=== PATIENT | female | born 1965 | race Caucasian/White ===

== ENCOUNTER 2018-03-09 16:02 | Inpatient (IN) | payer BC, SELFPAY ==
[2018-03-09] VITALS (7 sets, daily range): BP systolic 101–139; BP diastolic 55–79; PULSE 70–86; RESP 16–19; TEMP 37.2; O2SAT 92–97
--- NOTE | 2018-03-09 16:09 | DI.RAD.S_ITS ---
PROCEDURE: XR LUMBAR SPINE 2-3V INDICATIONS: Fall midline back pain. TECHNIQUE: 3 views of the lumbar spine were acquired. COMPARISON: None. FINDINGS: Bones: There 5 lumbar type vertebral bodies. There is a superior endplate compression deformity of T12. There are bilateral L5 pars defects resulting in 4 mm of anterolisthesis of L5 on S1. Soft tissues: Overlying bowel gas pattern is normal. No suspicious soft tissue calcifications. IMPRESSION: #1. Superior endplate compression deformity of T12 vertebral body, which may be chronic at this level. Correlation with point tenderness suggested. #2. Bilateral L5 pars defects resulting in 4 mm of anterolisthesis of L5 on S1. Dictated by: Spencer Ruiz M.D. on 03/09/2018 at 16:47 Approved by: Spencer Ruiz M.D. on 03/09/2018 at 16:50
[2018-03-09] MEDS: HYDROMORPHONE 1 MG INJ IV ×2 (16:27→18:14)
--- NOTE | 2018-03-09 17:01 | DI.CT.S_ITS ---
PROCEDURE: CT LUMBAR SPINE WO CON INDICATIONS: severe lumbar pain s/p fall TECHNIQUE: Noncontrast 3 mm thick sections acquired from the T12 level to the sacrum. Sagittal and coronal reformats were constructed. For radiation dose reduction, the following was used: automated exposure control. COMPARISON: [facility], CR, XR LUMBAR SPINE 2-3V, 03/09/2018, 16:18. FINDINGS: Image quality: Excellent. Bones: There are acute superior endplate compression deformities of the T12 and L1 vertebral bodies. There is approximately 10% vertebral body height loss at each level. Slight retropulsion of the posterior fracture fragment of the T12 superior endplate compression fracture results in minimal spinal canal stenosis at that level. There are bilateral L5 pars defects resulting in 4 mm of anterolisthesis of L5 on S1, which appears chronic. Soft tissues: No retroperitoneal masses or hematomas. Visualized aorta is normal in caliber. Lobulated appearance of the uterus, which may represent the presence of uterine fibroids. IMPRESSION: #1. Acute T12 and L1 superior endplate compression fractures. Mild retropulsion of the T12 posterior fracture fragment results in mild spinal canal stenosis at that level. #2. Chronic-appearing bilateral L5 pars defects resulting in 4 mm of anterolisthesis of L5 on S1. Findings discussed with the ordering provider Dr. Long Auhmada at 6:45 PM on 03/09/[address] Ruiz. Dictated by: Spencer Ruiz M.D. on 03/09/2018 at 18:45 Approved by: Spencer Ruiz M.D. on 03/09/2018 at 18:55
--- NOTE | 2018-03-09 17:58 | PC.NURSE ---
patient lying on back now. Feeling some better. Says that the pain medicine really helped but now it is starting to come back .Call light in reach and will call when she feels she needs some
--- NOTE | 2018-03-09 20:21 | ED_ITS ---
HPI - Back Pain/Injury General Chief Complaint: Back Pain/Injury Stated Complaint: Low back pain, fell 3ft Time Seen by Provider: 03/09/18 16:09 Source: patient, family and EMS Mode of arrival: ambulatory Limitations: no limitations History of Present Illness HPI Narrative: 52-year-old otherwise healthy female presents to the emergency department [facility] for evaluation back pain after a fall from 3 ft. She was standing on a ledge fell backwards, landing directly on her back. She denies any head or neck pain. She denies any chest pain or shortness of breath. She has no abdominal pain. She denies use of blood thinners, alcohol or street drugs. She has no numbness, tingling or weakness. She denies any loss of control of or bladder. Her pain is quite intense particularly when she moves. She complains of a pain largely in the midline with some surrounding tissue involvement. She was given fentanyl 150 mcg prior to her arrival MD Complaint: back pain Onset (ago): hour(s) Duration: constant Location: lumbar spine Severity: severe Quality: sharp Radiation: none Relieving factors: medication Exacerbating factors: movement, sitting upright and walking Context: fall and trauma Associated symptoms: denies other symptoms Treatments prior to arrival: other medications Related Data Home Medications Medication Instructions Recorded Confirmed albuterol sulfate 1 puff INHALATION Q4-6H PRN 03/09/18 03/09/18 Allergies Allergy/AdvReac Type Severity Reaction Status Date / Time No Known Drug Allergies Allergy Verified 03/09/18 16:08 Review of Systems Review of Systems All systems reviewed & are unremarkable except as noted in HPI and below Constitutional Denies chills, Denies fever(s), Denies lethargy and Denies weakness Eyes Denies change in vision, Denies eye discharge, Denies irritation and Denies loss of vision ENT Ears, Nose, Mouth, and Throat: Denies change in voice, Denies neck pain and Denies sore throat Cardiovascular Denies chest pain, Denies irregular heart rhythm, Denies lightheadedness, Denies palpitations, Denies dyspnea, Denies dyspnea on exertion and Denies orthopnea Respiratory Denies cough, Denies dyspnea, Denies dyspnea on exertion and Denies wheezing Gastrointestinal Gastrointestinal: Denies abdominal pain, Denies change in bowel habits, Denies diarrhea, Denies nausea and Denies vomiting Genitourinary Denies hematuria, Denies flank pain, Denies urinary incontinence and Denies urinary urgency Musculoskeletal Reports back pain, Reports limited range of motion and Denies neck pain Integumentary/Breasts Denies pruritus, Denies erythema, Denies rash and Denies wounds Neurologic Denies confusion, Denies loss of vision and Denies weakness Psychiatric Denies anxiety, Denies confusion, Denies depression, Denies homicidal ideation and Denies suicidal ideation Endocrine Denies palpitations Hematologic/Lymphatic Denies easy bruising Allergic/Immunologic Denies wheezing Exam Narrative Exam Narrative: GENERAL: 52-year-old female in obvious distress, clutching her back, GCS 15 HEAD: Atraumatic. Normocephalic. No temporal or scalp tenderness. EYES: Pupils equal round and reactive. Extraocular motions intact. No scleral icterus. No injection or drainage. ENT: Nose without bleeding, purulent drainage or septal hematoma. Throat without erythema, tonsillar hypertrophy or exudate. Uvula midline. Airway patent. NECK: Trachea midline. No JVD or lymphadenopathy. Supple, nontender, no meningeal signs. CARDIOVASCULAR: Regular rate and rhythm without murmurs, gallops, or rubs. RESPIRATORY: Clear to auscultation. Breath sounds equal bilaterally. No wheezes , rales, or rhonchi. GASTROINTESTINAL: Abdomen soft, non-tender, nondistended. No hepato-splenomegaly , or palpable masses. No guarding. EXTREMITIES: No clubbing, cyanosis, or edema. No joint tenderness, effusion, or edema noted. BACK: long winder tender but free of any obvious external abnormalities. Patient exam notes decreased range of motion and muscle spasm, with lumbar vertebral point tenderness. There are no symptoms of cauda equina such as saddle anesthesia, and decreased reflexes, decreased sensation or strength. NEURO: AOx3. SKIN: No rash or erythema. Initial Vital Signs Initial Vital Signs: Vital Signs Temperature 99.0 F 03/09/18 16:10 Pulse Rate 73 03/09/18 16:10 Respiratory Rate 18 03/09/18 16:10 Blood Pressure 111/71 03/09/18 16:10 Pulse Oximetry 97 03/09/18 16:10 Course Orders Ordered: ED Orders 03/09/18 16:09 XR lumbar spine 2-3V Stat 03/09/18 17:01 CT lumbar spine wo con Stat Discontinued Medications Hydrocodone Bitart/Acetaminophen (Vicodin Prepack) [address] [facility] Stop: 03/09/18 18:04 Hydromorphone HCl (Dilaudid) 1 mg IV NOW ONE Stop: 03/09/18 16:10 Last Admin: 03/09/18 16:27 Dose: 1 mg Hydromorphone HCl (Dilaudid) 1 mg IV NOW ONE Stop: 03/09/18 18:04 Last Admin: 03/09/18 18:14 Dose: 1 mg Reevaluation(s) Reevaluation #1: patient still having significant pain after multiple doses of Fentanyl and Dilaudid. Patient very motivated, but even with myself and at bedside she cannot even sit up let alone ambulate. Vital Signs - 8 hr 03/09/18 16:10 03/09/18 16:32 03/09/18 18:02 Temperature 99.0 F Pulse Rate 73 78 75 Respiratory Rate 18 16 18 Blood Pressure [Left Arm] 111/71 106/70 101/55 L Pulse Oximetry 97 96 92 03/09/18 18:47 03/09/18 19:12 03/09/18 19:35 Temperature Pulse Rate 86 72 70 Respiratory Rate 16 18 19 Blood Pressure [Left Arm] 104/60 113/59 L 114/65 Pulse Oximetry 94 94 95 MDM - Back Pain/Injury Imaging Data Lumbar Xray: Radiologist's impression: PROCEDURE: XR LUMBAR SPINE 2-3V INDICATIONS: Fall midline back pain. TECHNIQUE: 3 views of the lumbar spine were acquired. COMPARISON: None. FINDINGS: Bones: There 5 lumbar type vertebral bodies. There is a superior endplate compression deformity of T12. There are bilateral L5 pars defects resulting in 4 mm of anterolisthesis of L5 on S1. Soft tissues: Overlying bowel gas pattern is normal. No suspicious soft tissue calcifications. IMPRESSION: #1. Superior endplate compression deformity of T12 vertebral body, which may be chronic at this level. Correlation with point tenderness suggested. #2. Bilateral L5 pars defects resulting in 4 mm of anterolisthesis of L5 on S1. Dictated by: Spencer Ruiz M.D. on 03/09/2018 at 16:47 Approved by: Spencer Ruiz M.D. on 03/09/2018 at 16:[address]: Radiologist's impression: PROCEDURE: CT LUMBAR SPINE WO CON INDICATIONS: severe lumbar pain s/p fall TECHNIQUE: Noncontrast 3 mm thick sections acquired from the T12 level to the sacrum. Sagittal and coronal reformats were constructed. For radiation dose reduction, the following was used: automated exposure control. COMPARISON: [facility], CR, XR LUMBAR SPINE 2-3V, 03/09/2018, 16:18. FINDINGS: Image quality: Excellent. Bones: There are acute superior endplate compression deformities of the T12 and L1 vertebral bodies. There is approximately 10% vertebral body height loss at each level. Slight retropulsion of the posterior fracture fragment of the T12 superior endplate compression fracture results in minimal spinal canal stenosis at that level. There are bilateral L5 pars defects resulting in 4 mm of anterolisthesis of L5 on S1, which appears chronic. Soft tissues: No retroperitoneal masses or hematomas. Visualized aorta is normal in caliber. Lobulated appearance of the uterus, which may represent the presence of uterine fibroids. IMPRESSION: #1. Acute T12 and L1 superior endplate compression fractures. Mild retropulsion of the T12 posterior fracture fragment results in mild spinal canal stenosis at that level. #2. Chronic-appearing bilateral L5 pars defects resulting in 4 mm of anterolisthesis of L5 on S1. Findings discussed with the ordering provider Dr. Long Ahumada at 6:45 PM on 06/[address] Ruiz. Dictated by: Spencer Ruiz M.D. on 03/09/2018 at 18:45 Approved by: Spencer Ruiz M.D. on 03/09/2018 at 18:55 MDM Narrative Medical decision making narrative: Patient presents with isolated orthopedic, stable, nonsurgical injury. She has had multiple doses of IV pain meds and is very motivated to the but is in too much pain and cannot safely ambulate. The hospitalist is happy to accept this patient on his service for pain control and physical therapy referral in the morning. I have discussed with on-call orthopedics whom confirm this is a stable fracture, nonsurgical in nature and the patient can engage in activity as tolerated. She recommends consideration a back brace tomorrow Discharge Plan Departure Patient Disposition: Admitted as Observation Clinical Impression: Closed lumbar vertebral fracture, Intractable back pain Discharge Date/Time: 03/09/18 20:18 Admit Date/Time: 03/09/18 19:55 Admit Provider: Henry Macias
--- NOTE | 2018-03-09 21:06 | PM.HP.1 ---
History of Present Illness Date Patient Seen: 03/09/18 Time Patient Seen: 21:06 Chief complaint: Low back pain, fell 3ft Narrative: History of present illness Patient resides on [facility]. Patient was paining on her property and when she stepped back she fell backwards sustaining injury to her lower back. Patient with severe pain presentation. She was transported by fixed wing transport to the hospital. Patient had a CT of the spine which was reviewed by orthopedic surgeon division supervisor. Recommendation patient can ambulate as pain permits. No no limitations in activity based upon the CT findings. Patient admitted to the hospital for intractable back pain. Meds Home Medications Medication Instructions Recorded Confirmed Type albuterol sulfate 1 puff INHALATION Q4-6H PRN 03/09/18 03/09/18 History Allergies Allergy/AdvReac Type Severity Reaction Status Date / Time No Known Drug Allergies Allergy Verified 03/09/18 16:08 Review of Systems Review of Systems A 10 point review of system was negative apart from the findings as described. Patient with a low mid back pain discomfort. No chest pain or no shortness of breath no nausea no pain complaint in any other region noted. No recent fevers or chills. Exam Vital Signs (past 8 hours): - 03/09/18 16:10 03/09/18 16:32 03/09/18 18:02 Temperature 99.0 F Pulse Rate 73 78 75 Respiratory Rate 18 16 18 Blood Pressure Blood Pressure [Left Arm] 111/71 106/70 101/55 L Pulse Oximetry 97 96 92 03/09/18 18:47 03/09/18 19:12 03/09/18 19:35 Temperature Pulse Rate 86 72 70 Respiratory Rate 16 18 19 Blood Pressure Blood Pressure [Left Arm] 104/60 113/59 L 114/65 Pulse Oximetry 94 94 95 03/09/18 20:15 Temperature 98.9 F Pulse Rate 72 Respiratory Rate 18 Blood Pressure 139/79 H Blood Pressure [Left Arm] Pulse Oximetry 96 Oxygen Delivery Method Room Air Narrative Exam Narrative: General appearance Patient is awake and alert with moderate severe distress related to the back pain. Psychiatric Well oriented mood is stressed affect is appropriate Skin No rash no lesions nonjaundiced Eyes pupils are equal round and reactive to light Ears nose and throat Hearing is grossly intact nose septum to midline with no bleeding or no oropharyngeal lesions dentition is good Lymph nodes No lymphadenopathy to neck or axilla Respiratory Clear to auscultation with no wheezes no crackles Cardiovascular Regular in rate and rhythm no murmurs rubs or gallops GI Benign soft nontender positive bowel sounds no bruits Musculoskeletal Motor strength appears 5/5 range of motion limited due to the back pain no clubbing is noted Neurologic No lateralizing deficit noted cranial nerves 2-12 grossly intact Objective Imaging CT Spine: Radiologist's impression: CT Spine IMPRESSION: #1. Acute T12 and L1 superior endplate compression fractures. Mild retropulsion of the T12 posterior fracture fragment results in mild spinal canal stenosis at that level. #2. Chronic-appearing bilateral L5 pars defects resulting in 4 mm of anterolisthesis of L5 on S1. Assessment & Plan Plan: Assessment/Plan Narrative: 1. Intractable back pain Note CT of the spine with results as described. Orthopedic surgeon reviewed imaging. No limitations in movement specified by orthopedic surgeon. Level of activity as pain permits. Will start patient on IV TIRE DEBEADER Dilaudid with continuous at 0.2 milligrams/hour as tolerated. Close monitoring the patient for excessive sedation is requested. Continuous pulse oximetry monitoring requested. Lockout on the Dilaudid at 5 mg total over 4 hr. 0.2 mg dosing per 10 min. Zofran for the nausea as needed will continue bowel regimen to reduce risk of obstipation. 2. History of asthma Continue her albuterol inhaler as tolerated. No respiratory distress noted at this time. Time Spent With Patient Time with patient: Greater than 35 minutes (55 min)
--- NOTE | 2018-03-09 21:14 | P.HP_ITS ---
History of Present Illness Date Patient Seen: 03/09/18 Time Patient Seen: 21:06 Chief complaint: Low back pain, fell 3ft Narrative: History of present illness Patient resides on [facility]. Patient was paining on her property and when she stepped back she fell backwards sustaining injury to her lower back. Patient with severe pain presentation. She was transported by fixed wing transport to the hospital. Patient had a CT of the spine which was reviewed by orthopedic surgeon neonatal icu coordinator. Recommendation patient can ambulate as pain permits. No no limitations in activity based upon the CT findings. Patient admitted to the hospital for intractable back pain. Meds Home Medications Medication Instructions Recorded Confirmed Type albuterol sulfate 1 puff INHALATION Q4-6H PRN 03/09/18 03/09/18 History Allergies Allergy/AdvReac Type Severity Reaction Status Date / Time No Known Drug Allergies Allergy Verified 03/09/18 16:08 Review of Systems Review of Systems A 10 point review of system was negative apart from the findings as described. Patient with a low mid back pain discomfort. No chest pain or no shortness of breath no nausea no pain complaint in any other region noted. No recent fevers or chills. Exam Vital Signs (past 8 hours): - 03/09/18 16:10 03/09/18 16:32 03/09/18 18:02 Temperature 99.0 F Pulse Rate 73 78 75 Respiratory Rate 18 16 18 Blood Pressure Blood Pressure [Left Arm] 111/71 106/70 101/55 L Pulse Oximetry 97 96 92 03/09/18 18:47 03/09/18 19:12 03/09/18 19:35 Temperature Pulse Rate 86 72 70 Respiratory Rate 16 18 19 Blood Pressure Blood Pressure [Left Arm] 104/60 113/59 L 114/65 Pulse Oximetry 94 94 95 03/09/18 20:15 Temperature 98.9 F Pulse Rate 72 Respiratory Rate 18 Blood Pressure 139/79 H Blood Pressure [Left Arm] Pulse Oximetry 96 Oxygen Delivery Method Room Air Narrative Exam Narrative: General appearance Patient is awake and alert with moderate severe distress related to the back pain. Psychiatric Well oriented mood is stressed affect is appropriate Skin No rash no lesions nonjaundiced Eyes pupils are equal round and reactive to light Ears nose and throat Hearing is grossly intact nose septum to midline with no bleeding or no oropharyngeal lesions dentition is good Lymph nodes No lymphadenopathy to neck or axilla Respiratory Clear to auscultation with no wheezes no crackles Cardiovascular Regular in rate and rhythm no murmurs rubs or gallops GI Benign soft nontender positive bowel sounds no bruits Musculoskeletal Motor strength appears 5/5 range of motion limited due to the back pain no clubbing is noted Neurologic No lateralizing deficit noted cranial nerves 2-12 grossly intact Objective Imaging CT Spine: Radiologist's impression: CT Spine IMPRESSION: #1. Acute T12 and L1 superior endplate compression fractures. Mild retropulsion of the T12 posterior fracture fragment results in mild spinal canal stenosis at that level. #2. Chronic-appearing bilateral L5 pars defects resulting in 4 mm of anterolisthesis of L5 on S1. Assessment & Plan Plan: Assessment/Plan Narrative: 1. Intractable back pain Note CT of the spine with results as described. Orthopedic surgeon reviewed imaging. No limitations in movement specified by orthopedic surgeon. Level of activity as pain permits. Will start patient on IV SALES ANALYST Dilaudid with continuous at 0.2 milligrams/hour as tolerated. Close monitoring the patient for excessive sedation is requested. Continuous pulse oximetry monitoring requested. Lockout on the Dilaudid at 5 mg total over 4 hr. 0.2 mg dosing per 10 min. Zofran for the nausea as needed will continue bowel regimen to reduce risk of obstipation. 2. History of asthma Continue her albuterol inhaler as tolerated. No respiratory distress noted at this time. Time Spent With Patient Time with patient: Greater than 35 minutes (55 min)
[2018-03-09] MEDS: SODIUM CHLORIDE 0.9% 1,000 ML 150 ML IV (21:35)
[2018-03-10] VITALS (14 sets, daily range): BP systolic 115–135; BP diastolic 52–76; PULSE 80–90; RESP 16–18; TEMP 36.5–37.2; O2SAT 86–97
[2018-03-10] MEDS: ONDANSETRON 4 MG/2 ML INJ IV ×2 (00:38→16:15)
[2018-03-10] MEDS: HYDROMORPHONE PCA 6 MG/30 ML PCA.VIAL 1 MG IV (04:00)
[2018-03-10] MEDS: SODIUM CHLORIDE 0.9% 1,000 ML 150 ML IV ×2 (04:28→11:13)
[2018-03-10 06:16] LABS: Add Manual Diff / Slide Review NO; Basophils Percent Auto 0.3 % (0-2); Eosinophils Percent Auto 0.5 % (2-4); Hematocrit 38.9 % (36-46); Hemoglobin 13.4 g/dL (12.0-16.0); Lymphocytes Percent Auto 7.5 % (25-40); Mean Corpuscular HGB Conc 34.5 % (30-36); Mean Corpuscular Volume 92.7 fL (80-100); Monocytes Percent Auto 3.8 % (3-14); Neutrophils Absolute Auto 6400 /uL (3000-5900); Neutrophils Percent Auto 87.9 % (50-75); Platelet Count 197 X10^3/uL (150-400); Red Blood Cell Count 4.19 X10^6/uL (4.0-5.2); Red Cell Distribution Width 13.4 % (11.6-14.8); White Blood Cell Count 7.3 X10^3/uL (4.5-11.0)
[2018-03-10 06:26] LABS: Alanine Aminotransferase 35 IU/L (9-52); Albumin 3.5 g/dL (3.5-5.0); Albumin Globulin Ratio 1.3 (1.0-2.8); Alkaline Phosphatase 76 U/L (38-126); Aspartate Aminotransferase 36 IU/L (14-36); BUN Creatinine Ratio 18.6 (6-22); Bilirubin Total 0.7 mg/dL (0.2-1.3); Blood Urea Nitrogen 13 mg/dL (7-17); Calcium 8.5 mg/dL (8.4-10.2); Carbon Dioxide 29 mmol/L (22-32); Chloride 107 mmol/L (98-107); Estimated Glomerular Filt Rate > 60.0 mL/min (>60); Globulin 2.8 g/dL (1.7-4.1); Glucose 103 mg/dL (70-100); HEMOLYSIS < 15 (0-50); Potassium 4.1 mmol/L (3.4-5.1); Sodium 140 mmol/L (137-145); Total Protein 6.3 g/dL (6.3-8.2)
[2018-03-10] MEDS: PANTOPRAZOLE 20 MG TABLET PO (06:48)
--- NOTE | 2018-03-10 08:04 | PC.NURSE ---
assumed care of pt from outgoing shift. Pt has SENIOR PLANNING ANALYST running, 0.2/05/02. Pt complained that SENIOR PLANNING ANALYST was not working bc she falls asleep and does not hit the button, then wakes up with terrible pain. called MD and changed pump to current settings. Pt used Pt used 3.2 mg total (0.8 on kale) after changing SENIOR PLANNING ANALYST to continuous and SENIOR PLANNING ANALYST. Pt bed changed. moved to sarah, states more comfortable. Pt bed alarm on, in room. uses call light. given zofran 1x per MAR and stated it worked. Pt states if she moves too much then she gets nauseous. Pt very helpful. Pt uses bedpan. Pt has not been out of bed. Pt rolls but with great pain. will continue to monitor.
[2018-03-10] MEDS: ENOXAPARIN 40 MG/0.4 ML SYRINGE SUBCUT (09:40)
--- NOTE | 2018-03-10 10:47 | PC.NURSE ---
Addendum entered by Radha Turner R.N. 03/10/18 15:58: Late entry: BORDER MEASURER changed to new settings as ordered by Dr Lake. Fentanyl patch placed on R shoulder. Original Note: Addendum entered by Radha Turner R.N. 03/10/18 14:32: PT aware of new order for lumbar corset/brace. Original Note: Addendum entered by Radha Turner R.N. 03/10/18 13:16: Patient was trying to move a bit in bed when Dr Lake was rounding, and she had 500 ml emesis. Reports nausea resolved once she vomited, denies need for anti-emetic at this time and knows to ask for it PRN. Dr Lake had ordered her IV turned down to TKO, but said he will change that knowing that she's not really keeping much down orally. This check writer salesperson informed him that patient was placed on 3L O2, asked for O2 order. Anticipate ortho consult order also. Original Note: Shift summary: Alert and oriented X3. Dozing intermittently, reports better pain control with continuous setting on BORDER MEASURER. Rated back pain 5/10 at rest, 10/10 with activity (rolling in bed to get on/off bedpan). Assisted to reposition on L side for a while, pillow between legs. Reported nausea with increased pain, but did not require anti-emetic. Denies any paresthesias. Able to move all extremities, circulation and sensation WNL. Lungs CTA, dim posterior. Patient is holding her breath r/t pain and reports her respirations are shallow normally. SpO2 88-91% on RA awake, as low as 85% asleep. This check writer salesperson educated about importance of coughing and deep breathing often. Placed on 3L O2 via NC with sats now 92% while asleep. Continuous pulse ox implemented per order. IVF per emar, site in L forearm WNL. Encouraged to make needs known. Call light in reach, bed alarm on. rooming in and attentive.
--- NOTE | 2018-03-10 11:50 | PT.IPTN ---
Physical Therapy Treatment Note M3 PT-IP Subjective Start: 03/10/18 11:49 Freq: NEEDED Status: Active Protocol: Document 03/10/18 11:49 DLM (Rec: 03/10/18 11:50 DLM [id number]) Subjective Physical Therapy Visit Type Notes Her nurse reports she continues to have 10/10 pain with any movement in bed with use of DEWAXER. No additional physician notes in chart to indicate if they want to proceed with a brace. Will hold evaluation until her pain is better managed.
--- NOTE | 2018-03-10 12:28 | OT.IP.TRT ---
Occupational Therapy Treatment Note M3 OT- IP Subjective and Pain Start: 03/10/18 12:27 Freq: Status: Active Protocol: Document 03/10/18 12:27 [facility] (Rec: 03/10/18 12:28 [facility] [id number]) OT- Subjective Occupational Therapy Visit Type Type Administrative Note Notes Pt having 10/10 pain and therefore to hold OT eval until pain more manageable.
--- NOTE | 2018-03-10 13:32 | P.PN_ITS ---
Subjective Date Patient Seen: 03/10/18 Time Patient Seen: 13:26 Interval history: Patient with continued intractable pain in her back in area of compression fractures. Currently she is on continuous and demand PURCHASING INTERN with hydromorphone. She has severe pain with movement and has not been able to mobilize out of bed. Additionally she has had severe nausea and recurrent vomiting, throughout 500 cc while I was in the room, associated with the back pain and precipitated by movement. She denies any numbness or tingling or weakness in the legs. Also she has drops in O2 sat into the mid 80s when she is sleeping. Exam Vital Signs (past 8 hours): - 03/10/18 08:00 03/10/18 10:15 03/10/18 10:19 Temperature 98 F Pulse Rate 85 Respiratory Rate 18 Blood Pressure 117/61 Pulse Oximetry 91 86 L 92 03/10/18 11:26 03/10/18 12:00 03/10/18 13:14 Temperature 97.7 F Pulse Rate 89 Respiratory Rate 18 Blood Pressure 115/52 L Pulse Oximetry 97 94 95 Oxygen Delivery Method Nasal Cannula Oxygen Flow Rate 3 Narrative Exam Narrative: GENERAL: Patient is awake and in obvious pain HEENT: Pupils equal and reactive CHEST: Clear to auscultation bilaterally. CARDIAC: Regular rate and rhythm. ABDOMEN: Nondistended, soft, nontender EXTREMITIES: no edema. NEUROLOGICAL: Well-oriented, no weakness or loss of sensation in the legs SKIN: Warm, dry, no petechiae, no rash Objective Labs Result Diagrams: 03/10/18 05:55 03/10/18 05:55 Labs: Laboratory Results - last 24 hr 03/10/18 03/10/18 05:55 05:55 WBC 7.3 RBC 4.19 Hgb 13.4 Hct 38.9 MCV 92.7 MCH 32.0 MCHC 34.5 RDW 13.4 Plt Count 197 Neut % (Auto) 87.9 H Lymph % (Auto) 7.5 L [place] % (Auto) 3.8 Eos % (Auto) 0.5 L Baso % (Auto) 0.3 Neut # (Auto) 6400 H Sodium 140 Potassium 4.1 Chloride 107 Carbon Dioxide 29 BUN 13 Creatinine 0.70 Estimated GFR > 60.0 BUN/Creatinine Ratio 18.6 Glucose 103 H Calcium 8.5 Total Bilirubin 0.7 AST 36 ALT 35 Alkaline Phosphatase 76 Total Protein 6.3 Albumin 3.5 Globulin 2.8 Albumin/Globulin Ratio 1.3 Assessment & Plan Plan: Assessment/Plan Narrative: 1. Acute T12 and L1 compression fractures secondary to ground level fall. There is 10% height loss at each level and retropulsion of T12 fragments. Patient has intractable pain and right now unable to take p.o. due to nausea and vomiting. PT and OT have been consulted. Plan: Start fentanyl patch 12 mcg Q 72 hr. Discontinue continuous hydromorphone. Continue on demand hydromorphone PURCHASING INTERN. Start Celebrex 200 mg daily ordered for a.m.. Start Miacalcin nasal spray. Consulted Orthopedic surgery, Dr. Romero, for additional input. 2. Intractable nausea and vomiting, likely pain related. Continue as needed ondansetron and promethazine. Continue normal saline 150 cc/hour. 3. Acute hypoxia secondary to opioid analgesia. Continue O2 nasal cannula, currently 3 L. Continuous pulse oximetry. 4. DVT prophylaxis. Continue low-dose Lovenox. 5. Disposition. Continue inpatient status.
[2018-03-10] MEDS: CALCITONIN,SALMON, NASAL SPRAY 1 SPRAYS NASAL (14:00)
[2018-03-10] MEDS: fentaNYL 12 MCG/PATCH TOP (14:00)
[2018-03-10] MEDS: HYDROMORPHONE PCA 6 MG/30 ML PCA.VIAL IV ×2 (14:01→22:26)
--- NOTE | 2018-03-10 14:17 | PM.CN ---
History of Present Illness Date Patient Seen: 03/10/18 Time Patient Seen: 14:21 Chief complaint: Low back pain, fell 3ft Reason for consult: Low back pain and T12 and L1 compression fractures Requesting provider: Sudarshan [place] Narrative: the patient is a 52-year-old [facility]. Patient states she fell backwards off a step or over a root while she was painting a shed but then fell into a 5 ft deep excavated area around the shed, in a backward somersault type fashion were feet went over her head. she had immediate mid back pain and was brought to [facility]. she was found to have T12 and L1 compression fractures approximately 10% height loss minimal retropulsion and no neurologic deficits. she was attempted to be mobilized but was unable to be discharged due to pain control. she was admitted to internal medicine for pain control/ therapy. in the hospital she has had noted nausea and vomiting and was required anti nausea medications and a TRANSPORTATION DIRECTOR for pain control. she has not been mobilized out of bed yet due to pain and nausea. she denies any history of fragility fractures or osteopenia. comorbid conditions: morbid obesity location: mid back and right paraspinals quality: aching, throbbing, nausea, vomiting severity: severe duration: 1 day acute onset with fall time: constant context: fall modifying factors: rest, ice, pain medications associated symptoms: nausea vomiting [facility] Social History household members: spouse Smoking Status: Never smoker alcohol intake: never Meds Home Medications Medication Instructions Recorded Confirmed Type albuterol sulfate 1 puff INHALATION Q4-6H PRN 03/09/18 03/09/18 History Allergies Allergy/AdvReac Type Severity Reaction Status Date / Time No Known Drug Allergies Allergy Verified 03/09/18 16:08 Review of Systems Constitutional Constitutional: Reports system reviewed and no additional complaints, except as documented Eyes Eyes: Reports system reviewed; no additional complaints, except as documented ENT Ears, Nose, Mouth, and Throat: Yes system reviewed; no additional complaints, except as documented Cardiovascular Cardiovascular: Reports system reviewed; no additional complaints, except as documented Respiratory Respiratory: Reports system reviewed and no additional complaints, except as documented Gastrointestinal Gastrointestinal: Reports nausea and Reports vomiting Genitourinary Genitourinary: Reports system reviewed and no additional complaints, except as documented Musculoskeletal Musculoskeletal: Reports back pain Neurologic Neurologic: Reports system reviewed and no additional complaints, except as documented Exam Vital Signs (past 8 hours): - 03/10/18 08:00 03/10/18 10:15 03/10/18 10:19 Temperature 98 F Pulse Rate 85 Respiratory Rate 18 Blood Pressure 117/61 Pulse Oximetry 91 86 L 92 03/10/18 11:26 03/10/18 12:00 03/10/18 13:14 Temperature 97.7 F Pulse Rate 89 Respiratory Rate 18 Blood Pressure 115/52 L Pulse Oximetry 97 94 95 Oxygen Delivery Method Nasal Cannula Oxygen Flow Rate 3 Narrative Exam Narrative: alert oriented female lying in bed on her left side. The patient appears in no acute distress but endorses apprehension about mobilization and utilizes a emesis bag at the ready-- for possible nausea with physical examination the spine is examined: there are no lesions or wounds. The patient has minimal tenderness to palpation along the thoracolumbar junction and along the right side paraspinals. No step-offs palpated. no tenderness with palpation along the cervical spine musculoskeletal examination: all 4 extremities are examined there are no gross deformities no erythema or signs or symptoms of infection. Bilateral upper extremities have full range of motion full strength 5/5 biceps triceps wrist flexion wrist extensors and interosseous. Palpable radial pulses. Sensation intact to light touch median radial ulnar nerves bilateral lower extremities show full flexion extension of the knees with 5/5 quadriceps 5/5 hamstring 5/5 dorsiflexors and plantar flexion. Sensation grossly intact to light touch superficial peroneal deep peroneal sural and saphenous nerve distributions. Palpable dorsalis pedis pulses. Const General: cooperative Nutritional Appearance: obese Orientation: alert, awake and oriented x3 HENMT Head: normocephalic and atraumatic Neck Neck: normal visual inspection and full ROM Chest Chest: normal inspection of the chest Resp Effort & Inspection: normal respiratory effort and able to speak in complete sentences Cardio Rate: regular rate Rhythm: regular rhythm Back/Spine/Pelvis Back: back tenderness Objective Labs Result Diagrams: 03/10/18 05:55 03/10/18 05:55 Labs: Laboratory Results - last 24 hr 03/10/18 03/10/18 05:55 05:55 WBC 7.3 RBC 4.19 Hgb 13.4 Hct 38.9 MCV 92.7 MCH 32.0 MCHC 34.5 RDW 13.4 Plt Count 197 Neut % (Auto) 87.9 H Lymph % (Auto) 7.5 L [place] % (Auto) 3.8 Eos % (Auto) 0.5 L Baso % (Auto) 0.3 Neut # (Auto) 6400 H Sodium 140 Potassium 4.1 Chloride 107 Carbon Dioxide 29 BUN 13 Creatinine 0.70 Estimated GFR > 60.0 BUN/Creatinine Ratio 18.6 Glucose 103 H Calcium 8.5 Total Bilirubin 0.7 AST 36 ALT 35 Alkaline Phosphatase 76 Total Protein 6.3 Albumin 3.5 Globulin 2.8 Albumin/Globulin Ratio 1.3 Assessment & Plan (1) Compression fracture of first lumbar vertebra: Problem details: 52 year old female with L1 and T12 compression fractures approximately 10% height loss. neurovascularly intact. with uncontrolled back pain. recommended pain control, intranasal calcitonin, back bracing as needed-- will start trying lumbar corset if this is not adequate for patient may need TLSO brace. recommend vitamin-D and calcium ( 1200 mg calcium daily and 2-3000 international units of vitamin D) recommend consideration for outpatient osteopenia workup if warranted, however patient's mechanism of injury is certainly significant calf to result in these fractures. Current visit: Yes Status: Acute (2) Compression fracture of T12 vertebra: Problem details: 52 year old female with L1 and T12 compression fractures approximately 10% height loss. neurovascularly intact. with uncontrolled back pain. recommended pain control, intranasal calcitonin, back bracing as needed-- will start trying lumbar corset if this is not adequate for patient may need TLSO brace. recommend vitamin-D and calcium ( 1200 mg calcium daily and 2-3000 international units of vitamin D) recommend consideration for outpatient osteopenia workup if warranted, however patient's mechanism of injury is certainly significant calf to result in these fractures. Current visit: Yes Status: Acute Plan: Assessment/Plan Narrative: 1. pain control: weaned to oral when able 2. calcitonin 3. spinal orthosis: will try lumbar corset this does not provide adequate pain control and support for mobilization then proceed to TLSO brace and mobilization with Physical therapy occupational therapy orthopedic follow-up in approximately 2 weeks scheduled. Time Spent With Patient Time with patient: less than 15 minutes
--- NOTE | 2018-03-10 14:25 | PT.IPTN ---
Physical Therapy Treatment Note M3 PT-IP Subjective Start: 03/10/18 11:49 Freq: NEEDED Status: Active Protocol: Document 03/10/18 14:24 DLM (Rec: 03/10/18 14:25 DLM [id number]) Subjective Physical Therapy Visit Type Notes Continue to monitor the patient. She continues to have severe pain and difficulty moving in bed with nursing. Will plan to do eval when pain better controlled.
--- NOTE | 2018-03-10 14:39 | P.CONS_ITS ---
History of Present Illness Date Patient Seen: 03/10/18 Time Patient Seen: 14:21 Chief complaint: Low back pain, fell 3ft Reason for consult: Low back pain and T12 and L1 compression fractures Requesting provider: Sudarshan [place] Narrative: the patient is a 52-year-old female brought over from the [facility] after a fall. Patient states she fell backwards off a step or over a root while she was painting a shed but then fell into a 5 ft deep excavated area around the shed, in a backward somersault type fashion were feet went over her head. she had immediate mid back pain and was brought to [facility]. she was found to have T12 and L1 compression fractures approximately 10% height loss minimal retropulsion and no neurologic deficits. she was attempted to be mobilized but was unable to be discharged due to pain control. she was admitted to internal medicine for pain control/ therapy. in the hospital she has had noted nausea and vomiting and was required anti nausea medications and a DIVISION CONTROLLER for pain control. she has not been mobilized out of bed yet due to pain and nausea. she denies any history of fragility fractures or osteopenia. comorbid conditions: morbid obesity location: mid back and right paraspinals quality: aching, throbbing, nausea, vomiting severity: severe duration: 1 day acute onset with fall time: constant context: fall modifying factors: rest, ice, pain medications associated symptoms: nausea vomiting [facility] Social History household members: spouse Smoking Status: Never smoker alcohol intake: never Meds Home Medications Medication Instructions Recorded Confirmed Type albuterol sulfate 1 puff INHALATION Q4-6H PRN 03/09/18 03/09/18 History Allergies Allergy/AdvReac Type Severity Reaction Status Date / Time No Known Drug Allergies Allergy Verified 03/09/18 16:08 Review of Systems Constitutional Constitutional: Reports system reviewed and no additional complaints, except as documented Eyes Eyes: Reports system reviewed; no additional complaints, except as documented ENT Ears, Nose, Mouth, and Throat: Yes system reviewed; no additional complaints, except as documented Cardiovascular Cardiovascular: Reports system reviewed; no additional complaints, except as documented Respiratory Respiratory: Reports system reviewed and no additional complaints, except as documented Gastrointestinal Gastrointestinal: Reports nausea and Reports vomiting Genitourinary Genitourinary: Reports system reviewed and no additional complaints, except as documented Musculoskeletal Musculoskeletal: Reports back pain Neurologic Neurologic: Reports system reviewed and no additional complaints, except as documented Exam Vital Signs (past 8 hours): - 03/10/18 08:00 03/10/18 10:15 03/10/18 10:19 Temperature 98 F Pulse Rate 85 Respiratory Rate 18 Blood Pressure 117/61 Pulse Oximetry 91 86 L 92 03/10/18 11:26 03/10/18 12:00 03/10/18 13:14 Temperature 97.7 F Pulse Rate 89 Respiratory Rate 18 Blood Pressure 115/52 L Pulse Oximetry 97 94 95 Oxygen Delivery Method Nasal Cannula Oxygen Flow Rate 3 Narrative Exam Narrative: alert oriented female lying in bed on her left side. The patient appears in no acute distress but endorses apprehension about mobilization and utilizes a emesis bag at the ready-- for possible nausea with physical examination the spine is examined: there are no lesions or wounds. The patient has minimal tenderness to palpation along the thoracolumbar junction and along the right side paraspinals. No step-offs palpated. no tenderness with palpation along the cervical spine musculoskeletal examination: all 4 extremities are examined there are no gross deformities no erythema or signs or symptoms of infection. Bilateral upper extremities have full range of motion full strength 5/5 biceps triceps wrist flexion wrist extensors and interosseous. Palpable radial pulses. Sensation intact to light touch median radial ulnar nerves bilateral lower extremities show full flexion extension of the knees with 5/5 quadriceps 5/5 hamstring 5/5 dorsiflexors and plantar flexion. Sensation grossly intact to light touch superficial peroneal deep peroneal sural and saphenous nerve distributions. Palpable dorsalis pedis pulses. Const General: cooperative Nutritional Appearance: obese Orientation: alert, awake and oriented x3 HENMT Head: normocephalic and atraumatic Neck Neck: normal visual inspection and full ROM Chest Chest: normal inspection of the chest Resp Effort & Inspection: normal respiratory effort and able to speak in complete sentences Cardio Rate: regular rate Rhythm: regular rhythm Back/Spine/Pelvis Back: back tenderness Objective Labs Result Diagrams: 03/10/18 05:55 03/10/18 05:55 Labs: Laboratory Results - last 24 hr 03/10/18 03/10/18 05:55 05:55 WBC 7.3 RBC 4.19 Hgb 13.4 Hct 38.9 MCV 92.7 MCH 32.0 MCHC 34.5 RDW 13.4 Plt Count 197 Neut % (Auto) 87.9 H Lymph % (Auto) 7.5 L [place] % (Auto) 3.8 Eos % (Auto) 0.5 L Baso % (Auto) 0.3 Neut # (Auto) 6400 H Sodium 140 Potassium 4.1 Chloride 107 Carbon Dioxide 29 BUN 13 Creatinine 0.70 Estimated GFR > 60.0 BUN/Creatinine Ratio 18.6 Glucose 103 H Calcium 8.5 Total Bilirubin 0.7 AST 36 ALT 35 Alkaline Phosphatase 76 Total Protein 6.3 Albumin 3.5 Globulin 2.8 Albumin/Globulin Ratio 1.3 Assessment & Plan (1) Compression fracture of first lumbar vertebra: Problem details: 52 year old female with L1 and T12 compression fractures approximately 10% height loss. neurovascularly intact. with uncontrolled back pain. recommended pain control, intranasal calcitonin, back bracing as needed-- will start trying lumbar corset if this is not adequate for patient may need TLSO brace. recommend vitamin-D and calcium ( 1200 mg calcium daily and 2-3000 international units of vitamin D) recommend consideration for outpatient osteopenia workup if warranted, however patient's mechanism of injury is certainly significant calf to result in these fractures. Current visit: Yes Status: Acute (2) Compression fracture of T12 vertebra: Problem details: 52 year old female with L1 and T12 compression fractures approximately 10% height loss. neurovascularly intact. with uncontrolled back pain. recommended pain control, intranasal calcitonin, back bracing as needed-- will start trying lumbar corset if this is not adequate for patient may need TLSO brace. recommend vitamin-D and calcium ( 1200 mg calcium daily and 2-3000 international units of vitamin D) recommend consideration for outpatient osteopenia workup if warranted, however patient's mechanism of injury is certainly significant calf to result in these fractures. Current visit: Yes Status: Acute Plan: Assessment/Plan Narrative: 1. pain control: weaned to oral when able 2. calcitonin 3. spinal orthosis: will try lumbar corset this does not provide adequate pain control and support for mobilization then proceed to TLSO brace and mobilization with Physical therapy occupational therapy orthopedic follow-up in approximately 2 weeks scheduled. Time Spent With Patient Time with patient: less than 15 minutes
--- NOTE | 2018-03-10 14:49 | PT.IIE ---
Current Diagnoses Wedge compression fracture of T11-T12 vertebra, initial encounter for closed fracture (03/09/18) Wedge compression fracture of first lumbar vertebra, initial encounter for closed fracture (03/09/18) Physical Therapy Inpatient Evaluation/Re-Eval M1 PT/OT-IP Prior Functional Status Start: 03/10/18 11:49 Freq: NEEDED Status: Active Protocol: Document 03/10/18 18:05 DLM (Rec: 03/10/18 18:30 DL [id number]) Medical Review Prior Functional Status Medical History Reviewed Yes Diet/Fluid Consistency Regular Communication WNL Mobility and Gait Independent, active,no device, community distances, was painting at home at time of accident Activities of Daily Living and IADL's Independent, cares for 2 teenage children Social History Household Members spouse Living Arrangements House Number of Floors (Floors) One Floor Number of Stairs To Enter/Railing? 3, rail at front door but no rail on steps to bedroom Home Environment Standard Height Toilet Additional Social History Comment she likes in a tiny house while they are putting in foundation for their new house which was transported down from [employer] [place] her yard is like a construction project at this time, she reports a FWW will not fit into some parts of her tiny house, the tiny house is about 200 square feet, Children are ages 13 and 16. M2 PT-IP Current Condition Start: 03/10/18 11:49 Freq: NEEDED Status: Active Protocol: Document 03/10/18 18:05 DLM (Rec: 03/10/18 18:30 DL [id number]) Physical Therapy Current Condition Current Condition Evaluation Date 03/10/18 Treatment Diagnosis T12/L1 compression fx following a 3 ft fall, back pain and impaired gait Onset Date 03/09/18 Precautions Lumbar Precautions Log Roll No Twisting Limit Bending Lifting Restriction of 10 lbs Brace BOA [place] applied this visit for lumbar corset brace, pt to wear it as needed for pain control M3 PT-IP Subjective Start: 03/10/18 11:49 Freq: NEEDED Status: Active Protocol: Document 03/10/18 18:05 DLM (Rec: 03/10/18 18:30 DL [id number]) Subjective Physical Therapy Visit Type Type Initial Evaluation Visit Start Time 13:30 Visit Stop Time 14:49 Total Visit Minutes 65 Number of BRUSH FILLER HAND Visits 0 Physical Therapy Visit Comments Patient Comments She feels nauseated a lot, hx of get nauseated with a lot of pain. She wants to return home. Therapy Pain Assessment Pain When Pain Assessed At Rest Pain Present Pain Present Pain Reported Location Lower Back Intensity 7 Scale Used Numeric (1 - 10) Description Aching Pain Behaviors Facial Grimacing Guarding Moaning Wincing Pain Management Techniques Apply Cold Re-positioning Timing of Activity with Medications M4 PT-IP Mobility and Gait Start: 03/10/18 11:49 Freq: NEEDED Status: Active Protocol: Document 03/10/18 18:05 DLM (Rec: 03/10/18 18:30 DL [id number]) PT-Bed Mobility Assessment Rolling Type of Rolling Log Rolling Level of Assist Minimal Assistance Supine to Sit Supine to Sit Moderate Assistance Head of Bed Elevated Sit to Supine Sit to Supine Moderate Assistance Scooting Scooting to Edge of Bed Moderate Assistance Scooting Up and Down in Bed Dependent PT-Transfer Assessment Sit to and From Stand Sit to and from Stand Minimal Assistance Equipment Transfer Assistive Device Gait Belt Front Wheeled Walker Transfers Transfer Destination Bedside Commode Transfer Technique Stand Step Pivot Transfer Ability Level of Assist Minimal Assistance Use of Upper Extremities Comments Mobility Comments significant use of UE support sitting on edge of bed and on fWW to manage her back pain, pt reports her back pain in standing is less than she expected and getting out of bed is more painful, pt was nauseated most of this visit with blue bag close, mobility is very slow paced. Applied back brace in supine and pt feels it helps her pain . Pt chose to leave the brace on when back in bed because it seemed to help her pain. Instructed pt to wear the brace for pain management and to remove it in bed if it became uncomfortable. Gait Assessment Comments Gait Comments pt too nauseated to do more than transfers at this visit PT-Balance Assessment Sitting Balance and Reactions Static Sitting Balance Ability Fair Dynamic Sitting Balance Ability Fair Standing Balance and Reactions Static Standing Balance Ability Fair Dynamic Standing Balance Ability Fair Device Used FWW M5 PT-IP Objective Assessments Start: 03/10/18 11:49 Freq: NEEDED Status: Active Protocol: Document 03/10/18 18:05 DLM (Rec: 03/10/18 18:30 DL [id number]) Orientation Orientation/Cognition Level of Alertness Alert Orientation Name Age Birthday Month Date Year Day of Week Place Situation Language Function Ability No Deficits Noted Safety Awareness Understands Safety Issues Memory Description No Deficits Noted Comments she wears contacts and has low vision when they are not worn Gross Range of Motion Upper Extremity ROM Assessment Within Functional Limits Lower Extremity ROM Assessment Within Functional Limits Impairments back pain with LE movement Strength Upper Extremity Strength Assessment Within Functional Limits Comments Strength Comments unable to MMT LE strength due to back pain and nausea, pt able to weight bear on LE's for standing and able to move them slowly in bed, back pain with LE movements Coordination Assessment Gross Coordination Gross Coordination WNL Sensation Assessment Sensation Gross Sensation WNL Muscle Tone Muscle Tone WNL Yes M6 PT-IP Treatment Start: 03/10/18 11:49 Freq: NEEDED Status: Active Protocol: Document 03/10/18 18:05 DLM (Rec: 03/10/18 18:30 DLM [id number]) Physical Therapy Treatment Education Education Provided Precautions Safety Brace Education [place] Patient Equipment Issued Equipment Type and Company BOA [place] back brace from [employer] applied today to manage her back pain M7 PT-IP Assessment and Plan Start: 03/10/18 11:49 Freq: NEEDED Status: Active Protocol: Document 03/10/18 18:05 DLM (Rec: 03/10/18 18:30 DLM [id number]) PT Summary Assessment and Plan Potential Rehabilitation Potential Good Status of Condition at Evaluation Unstable Summary Impairments Pain ROM Strength Balance Bed Mobility Transfers Gait Activity Tolerance Assessment Summary Pt continues to have a lot of back pain which is in her lower thoracic and lumbar areas. She reports the lumbar support helps manage her pain. She was able to stand and transfer to the bedside commode with the brace and the fWW. She is having a lot of difficulty with nausea this visit and vomited at the end of this visit before returning to bed. Pt chose to keep the back brace on in bed since it was helping her pain. Instructed the pt to remove the brace if she became uncomfortable in bed. She is motivated to return home. She is currently living in a tiny house while they are doing construction on what will be their main house. The tiny house may make mobility at home more challenging. Will continue to assess for discharge planning as she is able to increase her mobility. At this time she is not safe to return home and would need SNF rehab before going home. This may change as her pain improves. Goals Bed Mobility Goal Minimal Assistance Transfer Goal Standby Assistance Front Wheeled Walker Gait Goal Standby Assistance Front Wheel Walker Gait Distance 50 Other Goals up and down 3 steps with rail and min assist Days to Meet Goals 5 Frequency of Treatment Frequency Of Treatment Twice a Day Treatment Plan Physical Therapy Treatment Plan Bed Mobility Training Transfer Training Gait Training Therapeutic Exercise Discharge Planning Hot or Cold Pack Other Recommendations and Next Treatment don and doff brace in supine Focus to assist with pain management , progress to up in chair as tolerated by pain and nausea Recommendations To Nursing Amount of Assist Needed 1 Person Assist 2 Person Assist Discharge Recommendations PT Discharge Recommendations Home with Assistance SNF Rehab Other Discharge Recommendations Will continue to assess for discharge planning, pt wants to go home but her mobility has to improve to be able to get around her house Equipment Needed for Home Before anticipate will need FWW Discharge
--- NOTE | 2018-03-10 15:00 | CM.DANOTE ---
Discharge Planning/Care Management DCP: assessment: Case received and met with pt and her spouse Michi at 0800. Pt was found lying in dark room, looking very uncomfortable. Michi rooming in and both waiting for the physican. Pt is a 52 year old female who admitted last night to care of hospitalist team. Inpt admission order: confirmed by LEYDA RN. Payer: confirmed with [facility] as [facility]/[place] PCP: no one yet, is establishing with [facility] but has not had first appt yet. (pt just moved to this area in December). Pt with a fall backwards while painting and acute spinal fractures. In extreme pain, now somewhat better with IV pain medication/infusion plus PATENT DRAFTER. PT and OT will be seeing pt. P: in process. DCP team to follow to assist with d/c issues and options are the POC unfolds. CM Discharge Assessment Start: 03/10/18 14:57 Freq: Status: Active Protocol: Document 03/10/18 14:57 ITV (Rec: 03/10/18 15:00 ITV [id number]) Discharge Planning Assessment Advance Directives? No History Provided By Patient Family Member Medical Record Prior Living Arrangements House Comment Pt lives on [facility] with her . They moved here in December 2017 Household Members spouse Independent with ADL's Yes Is patient alert and oriented? Yes Whiteboard Updated in Patient Room with Yes name and ext. # of Steel Spar Operator Review Status In Process Next Review Type Continued Stay Review
[2018-03-10] MEDS: ALBUTEROL HFA 60 PUFF/8 GM INH INH (17:10)
[2018-03-10] MEDS: ONDANSETRON 4 MG ODT PO (19:38)
[2018-03-10] MEDS: DOCUSATE 100 MG CAPSULE PO (20:14)
--- NOTE | 2018-03-10 21:22 | PC.NURSE ---
shift note met w pt at start of shift. pt w PT at time. Severe pain, N/V. Pt expresses concerns of pain and N/V and possible interactions. Encouraged pt to use SUPERVISOR ENROBING as needed. Offered PRN zofran. Call light in hand
[2018-03-11] VITALS (17 sets, daily range): BP systolic 121–138; BP diastolic 52–70; PULSE 83–87; RESP 16–18; TEMP 36.6–37; O2SAT 90–97
[2018-03-11] MEDS: SODIUM CHLORIDE 0.9% 1,000 ML 150 ML IV ×4 (00:12→19:44)
--- NOTE | 2018-03-11 01:21 | PC.NURSE ---
Addendum entered by Yadira Dumont R.N. 03/11/18 06:29: States she was able to sleep fairly well after receiving the Ativan. Reports pain is currently 5/10 and has used 0.8mg of Dilaudid via LAND COMMISSIONER during the night. Repositioned with use of bedpan and again suffered feeling of vertigo along with nausea and had 50cc bile colored emesis; medicated with Zofran. Heat applied to back for additional comfort and lumbar corset removed. MARRY costello on. Original Note: Addendum entered by Yadira Dumont R.N. 03/11/18 01:34: Medicated now with Ativan; will continue to monitor pain and sats. Original Note: Patient is alert and oriented. Breath sounds very diminished but taking shallow respirations as states it hurts too much to take a deep breath. Currently on oxygen at 3L/min per NC with sat of 96%; on continuous pulse oximetry. HRR. States nausea is being kept at bay but not resolved. Pain is not controlled with LAND COMMISSIONER because she does not want to utilize since it causes increase in nausea. Having vertigo when she opens her eyes. BT present and abdomen is soft. Voiding per bedpan. Needs assist to turn but only turning upon request due to pain exacerbation with movement. Has lumbar brace on but is not secured. Measured for MARRY costello and RN coordinator to provide and will then apply. Fall risk score is high and bed alarm is activated. MD contacted for additional meds for nausea as Zofran has not resolved nausea and refuses Phenergan per suppository as difficult due to pain.
[2018-03-11] MEDS: LORazepam 2 MG/ML SYRINGE 1 MG IV ×2 (01:31→07:48)
[2018-03-11] MEDS: HYDROMORPHONE PCA 6 MG/30 ML PCA.VIAL IV (06:02)
[2018-03-11] MEDS: ONDANSETRON 4 MG/2 ML INJ IV ×2 (06:08→12:11)
[2018-03-11] MEDS: CALCITONIN,SALMON, NASAL SPRAY 1 SPRAYS NASAL (07:49)
--- NOTE | 2018-03-11 09:02 | PC.NURSE ---
Addendum entered by Radha Turner R.N. 03/11/18 15:50: Late entry: Becomes nauseated with any movement, and was unable to get out of bed today. SENIOR ERP CONSULTANT was changed to Morphine to see if the nausea improves when she is no longer on the Dilaudid. Dozing for the most part, O2 sats maintaining in the mid 90's on 2L. Light in reach, alarm on. Original Note: Shift summary: Dosing intermittently, Alert and oriented X3. Became nauseated approx 0745 when repositioning in bed, approx 25 ml emesis at that time. Was medicated with 1 mg IV Lorazepam for nausea afterwards. Rated back pain 5/10 at rest. Denies paresthesias, CMS+ and WNL. Lumbar corset was removed by hourly shift manager for patient's comfort and it remains off at this time. Lungs CTA, dim throughout. Coughing and deep breathing encouraged. SpO2 on 3L 93-95%, cont pulse ox in place. HRR, trace non-pitting edema to extremities. IVF per orders, site in L forearm WNL. SENIOR ERP CONSULTANT available as needed. MARRY hose on. Minimal PO intake of fluids only, she does not feel like eating. Able to make needs known and calls appropriately. Light in reach, bed alarm on.
[2018-03-11] MEDS: ENOXAPARIN 40 MG/0.4 ML SYRINGE SUBCUT (11:15)
--- NOTE | 2018-03-11 13:02 | OT.IP.EVAL ---
Current Diagnoses Wedge compression fracture of T11-T12 vertebra, initial encounter for closed fracture (03/09/18) Wedge compression fracture of first lumbar vertebra, initial encounter for closed fracture (03/09/18) Occupational Therapy Inpatient Evaluation/Re-Eval M1 PT/OT-IP Prior Functional Status Start: 03/10/18 11:49 Freq: NEEDED Status: Active Protocol: Document 03/10/18 18:05 DLM (Rec: 03/10/18 18:30 DLM [id number]) Medical Review Prior Functional Status Medical History Reviewed Yes Diet/Fluid Consistency Regular Communication WNL Mobility and Gait Independent, active,no device, community distances, was painting at home at time of accident Activities of Daily Living and IADL's Independent, cares for 3 teenage children Social History Household Members spouse Living Arrangements House Number of Floors (Floors) One Floor Number of Stairs To Enter/Railing? 3, rail at front door but no rail on steps to bedroom Home Environment Standard Height Toilet Additional Social History Comment she likes in a tiny house while they are putting in foundation for their new house which was transported down from [employer], her yard is like a construction project at this time, she reports a FWW will not fit into some parts of her tiny house, the tiny house is about 200 square feet, Children are ages 13 and 16. M1 PT/OT-IP Prior Functional Status Start: 03/10/18 12:27 Freq: NEEDED Status: Active Protocol: Document 03/11/18 12:49 [facility] (Rec: 03/11/18 13:02 [facility] [id number]) Medical Review Prior Functional Status Medical History Reviewed Yes Diet/Fluid Consistency Regular Thin Liquids Communication WNL Mobility and Gait Independent, active,no device, community distances, was painting at home at time of accident Activities of Daily Living and IADL's Independent, cares for 3 teenage children Social History Household Members spouse Living Arrangements House Number of Floors (Floors) One Floor Number of Stairs To Enter/Railing? 3, rail at front door but no rail on steps to bedroom Home Environment Standard Height Toilet Additional Social History Comment she likes in a tiny house while they are putting in foundation for their new house which was transported down from [employer], her yard is like a construction project at this time, she reports a FWW will not fit into some parts of her tiny house, the tiny house is about 200 square feet, Children are ages 13 and 16. M2 OT-IP Current Condition Start: 03/10/18 12:27 Freq: Status: Active Protocol: Document 03/11/18 12:49 [facility] (Rec: 03/11/18 13:02 [facility] [id number]) Occupational Therapy Current Condition Current Condition Evaluation Date 03/11/18 Treatment Diagnosis T12 and L1 compression fracture Diagnosis Onset Date 03/09/18 Post Operative Precautions Lumbar Precautions Log Roll No Twisting Limit Bending Lifting Restriction of 10 lbs M3 OT- IP Subjective and Pain Start: 03/10/18 12:27 Freq: Status: Active Protocol: Document 03/11/18 12:49 [facility] (Rec: 03/11/18 13:02 [facility] [id number]) OT- Subjective Occupational Therapy Visit Type Type Initial Evaluation Visit Start Time 11:50 Visit Stop Time 13:20 Total Visit Minutes 30 Occupational Therapy Visit Comments Patient Comments Pt feeling nauseous but agreeable to try to get up. OT Pain Assessment Pain When Pain Assessed During Mobility Pain Present Pain Present Pain Reported Location Lower Back Intensity 10 Scale Used Numeric (1 - 10) M4 OT- IP ADL's Start: 03/10/18 12:27 Freq: Status: Active Protocol: Document 03/11/18 12:49 [facility] (Rec: 03/11/18 13:02 [facility] [id number]) OT ADL-Grooming General Evaluation Grooming Ability Moderate Assistance Areas Needing Assistance Retrieving/Set-up of Grooming Items Comments OT Grooming Comments At this time due to pt not been able to sit upright in bed, needing MODA to complete grooming needs as mainly have been sidelying in bed due to pain. OT ADL-Oral Care General Eval Areas of Assistance Retrieving/Set-Up of Items OT ADL-Dressing General Eval Lower Body Dressing Ability Total Assistance M6 OT- IP Functional Cognition Start: 03/10/18 12:27 Freq: Status: Active Protocol: Document 03/11/18 12:49 [facility] (Rec: 03/11/18 13:02 [facility] [id number]) Cognitive Factors Limiting Selfcare Function Cognitive Ability Level of Alertness Alert Patient Orientation Name Place Situation Attention Span Ability Capable of Focused Attention Unable to Sustain Attention Ability to Follow Commands Able to Follow One Step Commands Cognitive Comments Cognitive Assessment Comments Due to severe plan having trouble sustaining her focus and to follow commands. OT- Vision and Hearing OT- Hearing Assessment OT- Hearing Assessment WFL M7 OT- IP Mobility and Balance Start: 03/10/18 12:27 Freq: Status: Active Protocol: Document 03/11/18 12:49 [facility] (Rec: 03/11/18 13:02 [facility] [id number]) OT- Bed Mobility Assessment Rolling Type of Rolling Bilateral Level of Assistance Maximum Assistance 2 Person Assistance Bedrails OT-Transfer Assessment Comments Mobility Comments Due to pt's severe nausea needing use of bed to help roll, in addition to assist and bed rails. Please see PT eval for mobility. M8 OT- IP Objective Assessments Start: 03/10/18 12:27 Freq: Status: Active Protocol: Document 03/11/18 12:49 [facility] (Rec: 03/11/18 13:02 [facility] [id number]) OT-Muscle Tone Assessment Muscle Tone WNL Yes M9 OT- IP Assessment and Plan Start: 03/10/18 12:27 Freq: Status: Active Protocol: Document 03/11/18 12:49 [facility] (Rec: 03/11/18 13:02 [facility] [id number]) OT Summary Assessment and Plan Potential Rehabilitation Potential Good Analytic Complexity at Evaluation Moderate Summary OT Impairments Pain Balance Functional Cognition Functional Mobility Grooming Dressing Toileting Bathing Toilet Transfers Shower Transfers Progress Towards Goals Slow Progress due to Pain Slow Progress due to Medical Issues Slow Progress due to Activity Tolerance Assessment Summary Pt MOD complexity not able to tolerate bed mobility due to severe nausea and pain and needing extensive assist for ADL's and bed mobility at this time. Pt's main barrier in pain, steps and would benefit from skilled rehab pending recovery. Goals Grooming Goal Standby Assistance Dressing Goal Minimal Assistance Toileting Goal Standby Assistance Bathing Goal Minimal Assistance Toilet Transfer Goal Standby Assistance Shower Transfer Goal Minimal Assistance Patient/Caregiver Education Goal Demonstrate Post-Op Precautions Caregiver Independent Assisting Patient Days to Meet Goals 7 Frequency of Treatment Frequency Of Treatment Once a Day Treatment Plan OT Treatment Plan ADL Training Functional Cognition Training Functional Mobility Patient/Family Education Discharge Planning Other Treatment Recommendations and Next Bed mobility and transfer to Treatment Focus BSC. Discharge Recommendations OT Discharge Recommendations SNF Rehab Home Equipment Needs BSC, FWW, shower chair, LB dressing AED
[2018-03-11] MEDS: MORPHINE PCA 30 MG/30 ML PCA.VIAL IV ×2 (14:31→23:00)
--- NOTE | 2018-03-11 15:30 | PT.IPTN ---
Current Diagnoses Wedge compression fracture of T11-T12 vertebra, initial encounter for closed fracture (03/09/18) Wedge compression fracture of first lumbar vertebra, initial encounter for closed fracture (03/09/18) Physical Therapy Treatment Note M2 PT-IP Current Condition Start: 03/10/18 11:49 Freq: NEEDED Status: Active Protocol: Document 03/10/18 18:05 DLM (Rec: 03/10/18 18:30 DLM [id number]) Physical Therapy Current Condition Current Condition Evaluation Date 03/10/18 Treatment Diagnosis T12/L1 compression fx following a 3 ft fall, back pain and impaired gait Onset Date 03/09/18 Precautions Lumbar Precautions Log Roll No Twisting Limit Bending Lifting Restriction of 10 lbs Brace BOA [place] applied this visit for lumbar corset brace, pt to wear it as needed for pain control M3 PT-IP Subjective Start: 03/10/18 11:49 Freq: NEEDED Status: Active Protocol: Document 03/11/18 15:10 [facility] (Rec: 03/11/18 15:30 [facility] [id number]) Subjective Physical Therapy Visit Type Type Patient Unavailable Notes Pt unavailable due to nausea and vomiting with movement. Number of EQUAL OPPORTUNITY COUNSELOR Visits 0 Physical Therapy Visit Comments Patient Comments Pt continues to feel nauseated and very dizzy even with eyes closed.
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
[2018-03-11] MEDS: PROCHLORPERAZINE 10 MG/2 ML VIAL 5 MG IV (19:41)
[2018-03-11] MEDS: SCOPOLAMINE 1 PATCH TOP (21:33)
[2018-03-11] MEDS: SENNOSIDES 8.6 MG TABLET 17.2 MG PO (21:33)
[2018-03-11] MEDS: DOCUSATE 100 MG CAPSULE PO (21:33)
[2018-03-11] MEDS: PANTOPRAZOLE 40 MG VIAL IV (21:34)
--- NOTE | 2018-03-11 23:36 | PC.NURSE ---
I notified Dr Tadeo of patient's c/o dizziness & nausea with any slight change of position, and asked if Scopolamine patch would be more effective. He ordered Scop patch for her, as well as Compazine. Compazine administered, later in evening I applied Scop patch behind right ear. CBG checked prior to meal at 84 mg/dl. She reported no nausea at mealtime, but also said she did not feel like eating. I talked to her about the importance of getting calories and protein necessary for healing. She agreed to eat popsicle and sip on ensure. At bedtime she agreed to sit up at side of bed, hair washed and full sponge bath given by Kierra MUÑOZ. She was actively doing good deep breathing with movement. Did throw up emesis while sitting up. 2L O2 sats maintaining 93-96% Gown & linens changed. Back into bed. Brace on for any mvmt, otherwise left loose/taken off when she is laying still in bed. Spouse Ming at bedside, planning to spend night. Expressed concern that Nicky is not progressing, I looked for Dr Tadeo but he was not in house. I printed out teaching material about compression fractures for Ming. Ming requested that nursing be aware of his request for early Dr walton, to reevaluate patient's plan of care. Full patient report given to Yadira SALAS RN.
[2018-03-12] VITALS (12 sets, daily range): BP systolic 129–145; BP diastolic 62–80; PULSE 71–90; RESP 16–18; TEMP 36.2–37.4; O2SAT 89–96
[2018-03-12] MEDS: SODIUM CHLORIDE 0.9% 1,000 ML 150 ML IV ×3 (02:11→15:52)
--- NOTE | 2018-03-12 03:34 | PC.NURSE ---
Addendum entered by Yadira Dumont R.N. 03/12/18 06:08: Turned side to side in order to use bedpan and then change pad/remove corset from under patient. Prior to starting activity patient denied vertigo and nausea. After completing cares patient stated vertigo has returned and had small light bile colored emesis but mostly dry heaves; medicated with Compazine. Discussion regarding nausea associated with pain and patient states she's been trying not to use pain medication (used only 2mg of Morphine during this shift). Agreeable to trying to utilize more pain medication to make movement less painful to see if that will reduce nausea with movement. Original Note: Patient is alert and oriented. Breath sounds remain diminished throughout. Currently on oxygen at 2L/min per NC with sat of 94%. HRR. Denies any nausea at this time and was able to open eyes without experiencing any vertigo. States pain currently at 5/10; encouraged use of Morphine [employer]. BT present and abdomen is soft; passing flatus but has had no BM since 03/08. No urinary concerns; using bedpan to void at night. Assisted to reposition q2h as not able to turn herself. Wearing bilateral MARRY stockings. Fall risk score is high and bed alarm is activated. rooming in.
[2018-03-12] MEDS: MORPHINE PCA 30 MG/30 ML PCA.VIAL IV ×3 (05:40→22:08)
[2018-03-12] MEDS: PROCHLORPERAZINE 10 MG/2 ML VIAL 5 MG IV (05:59)
--- NOTE | 2018-03-12 07:58 | PM.PN.1 ---
Subjective Date Patient Seen: 03/12/18 Time Patient Seen: 07:59 Interval history: Patient is laying in bed comfortably. is sitting bedside. Patient reports pain to be tolerable. Patient received lumbar corset yesterday and reports wearing it for several hours last night. She has not been wearing the corset while sleeping due to being uncomfortable. Patient reports frequent nausea and vomiting since the fall. Patient reports not wanting to eat due to vertigo sensation. She reports yesterday she had 2 episodes of vertigo when the nurse moved her to go to the bathroom and for bath. Patient also reports R lower abdominal pain. Reports pain started a few days ago while in hospital. Rates pain to be a 5/10. Reports that eating aggravates the pain and resting helps alleviate the pain. Patient denies fever, chills or chest pain. Exam Vital Signs (past 8 hours): - 03/12/18 01:31 03/12/18 05:59 03/12/18 06:02 Temperature 99.2 F 98.4 F Pulse Rate 90 78 85 Respiratory Rate 16 16 Blood Pressure 129/76 H 145/75 H 145/75 H Pulse Oximetry 94 94 03/12/18 06:07 Temperature Pulse Rate Respiratory Rate Blood Pressure Pulse Oximetry 94 Oxygen Delivery Method Nasal Cannula Oxygen Flow Rate 2 Narrative Exam Narrative: Patient is alert and oriented. Patient appears as a well developed women in no acute distress. Pulses 2+ throughout. Sensory to light touch intact throughout. Muscle strength 5/5 throughout. Pain on palpation of the right lower abdomen. Objective Labs Result Diagrams: 03/10/18 05:55 03/10/18 05:55 Labs: 03/09/2018 CT Lumbar Spine w/o contrast #1. Acute T12 and L1 superior endplate compression fractures. Mild retropulsion of the T12 posterior fracture fragment results in mild spinal canal stenosis at that level. #2. Chronic-appearing bilateral L5 pars defects resulting in 4 mm of anterolisthesis of L5 on S1. Assessment & Plan Plan: Assessment/Plan Narrative: 1. Compression fracture of first lumbar vertebra 2. Compression fracture of T12 vertebra Plan: Dr. Jeronimo will be consulting with later on today. Patient is to continue wearing lumbar corset and mobilizing with PT. Will follow up in clinic in 2 weeks.
[2018-03-12] MEDS: CALCITONIN,SALMON, NASAL SPRAY 1 SPRAYS NASAL (08:37)
[2018-03-12] MEDS: ENOXAPARIN 40 MG/0.4 ML SYRINGE SUBCUT (08:37)
[2018-03-12] MEDS: DOCUSATE 100 MG CAPSULE PO ×2 (08:37→20:42)
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
--- NOTE | 2018-03-12 14:45 | PT.IPTN ---
Current Diagnoses Wedge compression fracture of T11-T12 vertebra, initial encounter for closed fracture (03/09/18) Wedge compression fracture of first lumbar vertebra, initial encounter for closed fracture (03/09/18) Physical Therapy Treatment Note M2 PT-IP Current Condition Start: 03/10/18 11:49 Freq: NEEDED Status: Active Protocol: Document 03/10/18 18:05 DLM (Rec: 03/10/18 18:30 DLM [id number]) Physical Therapy Current Condition Current Condition Evaluation Date 03/10/18 Treatment Diagnosis T12/L1 compression fx following a 3 ft fall, back pain and impaired gait Onset Date 03/09/18 Precautions Lumbar Precautions Log Roll No Twisting Limit Bending Lifting Restriction of 10 lbs Brace BOA [place] applied this visit for lumbar corset brace, pt to wear it as needed for pain control M3 PT-IP Subjective Start: 03/10/18 11:49 Freq: NEEDED Status: Active Protocol: Document 03/12/18 14:45 AB (Rec: 03/12/18 17:11 AB [email or web address]) Subjective Physical Therapy Visit Type Type Treatment Note Visit Start Time 14:45 Visit Stop Time 15:16 Total Visit Minutes 31 Number of CIRCULAR SAWYER HELPER Visits 0 Physical Therapy Visit Comments Patient Comments pt agreeable to do therapy Therapy Pain Assessment Pain When Pain Assessed During Mobility Pain Present Pain Present Pain Reported Location Lower Back Scale Used pain scale not stated M4 PT-IP Mobility and Gait Start: 03/10/18 11:49 Freq: NEEDED Status: Active Protocol: Document 03/12/18 14:45 AB (Rec: 03/12/18 17:11 AB [email or web address]) PT-Transfer Assessment Sit to and From Stand Sit to and from Stand Maximum Assistance 2 Person Assistance Use of Upper Extremities Equipment Transfer Assistive Device Gait Belt Front Wheeled Walker Transfers Transfer Destination Toilet Comments Mobility Comments pt requested to use the toilet and ambulated to the toilet after ambulating in room. pt used FWW requiring mod A but required max A towards the end of ambulation to the toilet. pt completed sit to stand from the toilet using grab bars max A x 2 and max cues. pt was able to maintain standing mod to max A using FWW for support while OT assist pt with hygiene care. pt ambulated towards chair using FWW mod to max A and cues. positioned pt on chair. call light and table placed within reach. Gait Assessment Gait Gait Assistance Required: Moderate Assistance Maximum Assistance 1 Person Assist Distance (Feet) (feet) 20 Able to Maintain Weight Bearing Status Yes During Gait Assistive Devices Assistive Device Gait Belt Front Wheeled Walker Orthotic/Prosthetic Devices or Brace: Yes Gait Deviations General Gait Pattern Antalgic Decreased Stride Length Decreased Feet Clearance Step-to Gait Factors Limiting Gait Function Factors Limiting Gait Function Decreased Activity Tolerance Decreased Strength Difficulty Following Directions Pain Poor Balance Poor Safety Awareness M5 PT-IP Objective Assessments Start: 03/10/18 11:49 Freq: NEEDED Status: Active Protocol: Document 03/10/18 18:05 DLM (Rec: 03/10/18 18:30 DLM [id number]) Orientation Orientation/Cognition Level of Alertness Alert Orientation Name Age Birthday Month Date Year Day of Week Place Situation Language Function Ability No Deficits Noted Safety Awareness Understands Safety Issues Memory Description No Deficits Noted Comments she wears contacts and has low vision when they are not worn Gross Range of Motion Upper Extremity ROM Assessment Within Functional Limits Lower Extremity ROM Assessment Within Functional Limits Impairments back pain with LE movement Strength Upper Extremity Strength Assessment Within Functional Limits Comments Strength Comments unable to MMT LE strength due to back pain and nausea, pt able to weight bear on LE's for standing and able to move them slowly in bed, back pain with LE movements Coordination Assessment Gross Coordination Gross Coordination WNL Sensation Assessment Sensation Gross Sensation WNL Muscle Tone Muscle Tone WNL Yes M6 PT-IP Treatment Start: 03/10/18 11:49 Freq: NEEDED Status: Active Protocol: Document 03/12/18 14:45 AB (Rec: 03/12/18 17:11 AB [email or web address]) Physical Therapy Treatment Education Education Provided Precautions Weight Bearing Status Post-Op Packet Safety M7 PT-IP Assessment and Plan Start: 03/10/18 11:49 Freq: NEEDED Status: Active Protocol: Document 03/12/18 14:45 AB (Rec: 03/12/18 17:11 AB [email or web address]) PT Summary Assessment and Plan Potential Rehabilitation Potential Fair Summary Impairments Pain ROM Strength Balance Coordination Sensation Cognition Bed Mobility Transfers Gait Activity Tolerance Progress Towards Goals Slow Progress due to Pain Slow Progress due to Medical Issues Slow Progress due to Activity Tolerance Assessment Summary pt requiring 1-2 person assist with mobility. pt seemed drowsy during tx session requiring cues to keep eyes open. pt will require SNF rehab to improve strength and mobility. Goals Bed Mobility Goal Minimal Assistance Transfer Goal Standby Assistance Front Wheeled Walker Gait Goal Standby Assistance Front Wheel Walker Gait Distance 50 Other Goals up and down 3 steps with rail and min assist Days to Meet Goals 5 Frequency of Treatment Frequency Of Treatment Twice a Day Treatment Plan Physical Therapy Treatment Plan Bed Mobility Training Transfer Training Gait Training Therapeutic Exercise Discharge Planning Hot or Cold Pack Other Recommendations and Next Treatment don and doff brace in supine Focus to assist with pain management , progress to up in chair as tolerated by pain and nausea Recommendations To Nursing Amount of Assist Needed 1 Person Assist 2 Person Assist Discharge Recommendations PT Discharge Recommendations SNF Rehab Other Discharge Recommendations Will continue to assess for discharge planning, pt wants to go home but her mobility has to improve to be able to get around her house Equipment Needed for Home Before anticipate will need FWW Discharge
--- NOTE | 2018-03-12 14:57 | PC.NURSE ---
Resp/LOC: Very sleepy this am. Arouses but then would fall asleep while speaking and during bkft meal. made aware and fentynal patch was stopped and removed. STRAPPING MACHINE OPERATOR has been effective for pain control. Pt is more awake this afternoon and able to carry on a conversation. Scope patch accidently removed and was replaced, pt reports her nausea has been better today over yesterday. Pt has been max assist when moving and remains unable to amb much more than steps. Did see SS to review her future discharge options. Spouse has been rooming in and at bedside. He has been helping pt with some of her adl's such as feeding her. He is attentive and comforting to her. Is awaiting Dr. montiel to come and see her. Cont w/poc.
--- NOTE | 2018-03-12 14:57 | PM.PN.1 ---
Subjective Date Patient Seen: 03/12/18 Time Patient Seen: 12:57 Interval history: ADMITTED WITH HISTORY OF FALLS ABOUT 5 FT ON THE HEAD AND THEN FLIPPED OVER AND LANDED ON THE BACK IS T12 FRACTURE ON IMAGING HAS NAUSEA WHEN SHE MOVES AND NO OTHER ABDOMINAL SYMPTOMS OF SEVERE PAIN AND DIARRHEA DR. ALCAZAR FROM ORTHOPEDICS HAS SEEN HER AND HAS REQUESTED DR. MAI THE SPIKE MACHINE FEEDER TO SEE HER LATER TODAY Exam Vital Signs (past 8 hours): - 03/12/18 07:50 03/12/18 08:00 03/12/18 09:25 Temperature 97.2 F L Pulse Rate 80 Respiratory Rate 18 Blood Pressure 140/72 H Pulse Oximetry 96 95 95 03/12/18 12:00 Temperature 97.3 F L Pulse Rate 75 Respiratory Rate 18 Blood Pressure 132/80 H Pulse Oximetry 96 Oxygen Delivery Method Room Air Oxygen Flow Rate 2 Const General: cooperative, healthy appearing and comfortable Orientation: alert, awake and oriented x3 HENMT Head: normal to inspection Ears: hearing grossly normal bilaterally Nose: external nose normal Face and sinus: normal facial exam Eyes General: appearance normal, both eyes and all related structures Eyelids: eyelids normal Conjunctivae: conjunctivae normal Sclera: sclerae normal Pupils: PERRL EOM: EOM intact bilaterally Chest Chest: normal inspection of the chest Resp Effort & Inspection: normal respiratory effort and able to speak in complete sentences Auscultation: clear to auscultation bilaterally Cardio Palpation: normal PMI Rate: regular rate Rhythm: regular rhythm and abnormal rhythm Heart Sounds: S1 normal and S2 normal GI Inspection: normal to inspection Palpation: soft and No tender Back/Spine/Pelvis Back: back tenderness Skin General: no rashes or lesions noted Neuro General: alert, awake and oriented x3 Cranial Nerves: CN's II-XI intact bilaterally Cognition: normal cognition Speech: speech normal Gait: normal gait Motor: muscle tone normal throughout Sensory Exam: no sensory deficits noted Extrem General: normal to inspection Psych Appearance: grossly normal Mood: congruent mood Affect: normal affect Attitude: cooperative Thought Process: normal Thought Content: normal Judgment: judgment good Objective Labs Result Diagrams: 03/10/18 05:55 03/10/18 05:55 Assessment & Plan Plan: Assessment/Plan Narrative: 1. Traumatic Fracture T12 Spine Pain Control and Spine consult Nausea improved Spoke to re condition and online banking specialist consult Time Spent With Patient Time with patient: 25 - 35 minutes
--- NOTE | 2018-03-12 15:02 | P.PN_ITS ---
Subjective Date Patient Seen: 03/12/18 Time Patient Seen: 12:57 Interval history: ADMITTED WITH HISTORY OF FALLS ABOUT 5 FT ON THE HEAD AND THEN FLIPPED OVER AND LANDED ON THE BACK IS T12 FRACTURE ON IMAGING HAS NAUSEA WHEN SHE MOVES AND NO OTHER ABDOMINAL SYMPTOMS OF SEVERE PAIN AND DIARRHEA DR. ALCAZAR FROM ORTHOPEDICS HAS SEEN HER AND HAS REQUESTED DR. MAI THE CHIEF LIBRARIAN EXTENSION DEPARTMENT TO SEE HER LATER TODAY Exam Vital Signs (past 8 hours): - 03/12/18 07:50 03/12/18 08:00 03/12/18 09:25 Temperature 97.2 F L Pulse Rate 80 Respiratory Rate 18 Blood Pressure 140/72 H Pulse Oximetry 96 95 95 03/12/18 12:00 Temperature 97.3 F L Pulse Rate 75 Respiratory Rate 18 Blood Pressure 132/80 H Pulse Oximetry 96 Oxygen Delivery Method Room Air Oxygen Flow Rate 2 Const General: cooperative, healthy appearing and comfortable Orientation: alert, awake and oriented x3 HENMT Head: normal to inspection Ears: hearing grossly normal bilaterally Nose: external nose normal Face and sinus: normal facial exam Eyes General: appearance normal, both eyes and all related structures Eyelids: eyelids normal Conjunctivae: conjunctivae normal Sclera: sclerae normal Pupils: PERRL EOM: EOM intact bilaterally Chest Chest: normal inspection of the chest Resp Effort & Inspection: normal respiratory effort and able to speak in complete sentences Auscultation: clear to auscultation bilaterally Cardio Palpation: normal PMI Rate: regular rate Rhythm: regular rhythm and abnormal rhythm Heart Sounds: S1 normal and S2 normal GI Inspection: normal to inspection Palpation: soft and No tender Back/Spine/Pelvis Back: back tenderness Skin General: no rashes or lesions noted Neuro General: alert, awake and oriented x3 Cranial Nerves: CN's II-XI intact bilaterally Cognition: normal cognition Speech: speech normal Gait: normal gait Motor: muscle tone normal throughout Sensory Exam: no sensory deficits noted Extrem General: normal to inspection Psych Appearance: grossly normal Mood: congruent mood Affect: normal affect Attitude: cooperative Thought Process: normal Thought Content: normal Judgment: judgment good Objective Labs Result Diagrams: 03/10/18 05:55 03/10/18 05:55 Assessment & Plan Plan: Assessment/Plan Narrative: 1. Traumatic Fracture T12 Spine Pain Control and Spine consult Nausea improved Spoke to re condition and solar energy specialist consult Time Spent With Patient Time with patient: 25 - 35 minutes
[2018-03-12 15:03] LABS: Add Manual Diff / Slide Review NO; Basophils Percent Auto 0.5 % (0-2); Eosinophils Percent Auto 1.4 % (2-4); Hematocrit 34.4 % (36-46); Hemoglobin 11.9 g/dL (12.0-16.0); Lymphocytes Percent Auto 8.9 % (25-40); Mean Corpuscular HGB Conc 34.5 % (30-36); Mean Corpuscular Hemoglobin 31.7 PG (26-34); Mean Corpuscular Volume 91.9 fL (80-100); Monocytes Percent Auto 6.1 % (3-14); Neutrophils Absolute Auto 6400 /uL (3000-5900); Neutrophils Percent Auto 83.1 % (50-75); Platelet Count 161 X10^3/uL (150-400); Red Blood Cell Count 3.75 X10^6/uL (4.0-5.2); Red Cell Distribution Width 13.2 % (11.6-14.8); White Blood Cell Count 7.7 X10^3/uL (4.5-11.0)
[2018-03-12 15:19] LABS: Alanine Aminotransferase 32 IU/L (9-52); Albumin 2.8 g/dL (3.5-5.0); Alkaline Phosphatase 80 U/L (38-126); Aspartate Aminotransferase 21 IU/L (14-36); Bilirubin Total 0.9 mg/dL (0.2-1.3); Bilirubin Unconjugated 0.5 mg/dL (0.0-1.1); Blood Urea Nitrogen 7 mg/dL (7-17); Carbon Dioxide 23 mmol/L (22-32); Chloride 105 mmol/L (98-107); Estimated Glomerular Filt Rate > 60.0 mL/min (>60); Globulin 2.7 g/dL (1.7-4.1); Glucose 85 mg/dL (70-100); HEMOLYSIS < 15 (0-50); Potassium 3.5 mmol/L (3.4-5.1); Sodium 137 mmol/L (137-145); Total Protein 5.5 g/dL (6.3-8.2)
--- NOTE | 2018-03-12 15:31 | OT.IP.TRT ---
Current Diagnoses Wedge compression fracture of T11-T12 vertebra, initial encounter for closed fracture (03/09/18) Wedge compression fracture of first lumbar vertebra, initial encounter for closed fracture (03/09/18) Occupational Therapy Treatment Note M2 OT-IP Current Condition Start: 03/10/18 12:27 Freq: Status: Active Protocol: Document 03/11/18 12:49 [facility] (Rec: 03/11/18 13:02 [facility] [email or web address]) Occupational Therapy Current Condition Current Condition Evaluation Date 03/11/18 Treatment Diagnosis T12 and L1 compression fracture Diagnosis Onset Date 03/09/18 Post Operative Precautions Lumbar Precautions Log Roll No Twisting Limit Bending Lifting Restriction of 10 lbs M3 OT- IP Subjective and Pain Start: 03/10/18 12:27 Freq: Status: Active Protocol: Document 03/12/18 15:25 [facility] (Rec: 03/12/18 15:30 [facility] [id number]) OT- Subjective Occupational Therapy Visit Type Type Treatment Note Visit Start Time 14:48 Visit Stop Time 15:18 Total Visit Minutes 30 Notes Pt requesting to get up and use the bathroom. OT Pain Assessment Pain When Pain Assessed During Mobility Pain Present Pain Present Pain Reported M4 OT- IP ADL's Start: 03/10/18 12:27 Freq: Status: Active Protocol: Document 03/12/18 15:25 [facility] (Rec: 03/12/18 15:30 [facility] [id number]) OT ADL-Dressing General Eval Upper Body Dressing Ability Total Assistance Lower Body Dressing Ability Total Assistance Comments OT Dressing Comments Total assist to saurav/doff back brace. OT ADL-Toileting General Evaluation Toileting Ability Minimal Assistance Areas Needing Assistance Manage Clothing Comments OT Toileting Comments Us eo BSC over toilet and heavy use of grab bar. M6 OT- IP Functional Cognition Start: 03/10/18 12:27 Freq: Status: Active Protocol: Document 03/12/18 15:25 [facility] (Rec: 03/12/18 15:30 [facility] [id number]) Cognitive Factors Limiting Selfcare Function Cognitive Ability Level of Alertness Alert Patient Orientation Name Place Situation Attention Span Ability Capable of Focused Attention Unable to Sustain Attention Ability to Follow Commands Able to Follow One Step Commands Able to Follow One Step Commands with Increased Time Able to Follow One Step Commands with Repetition Cognitive Comments Cognitive Assessment Comments Pt very groogy and trouble staying awake during treatment session. M7 OT- IP Mobility and Balance Start: 03/10/18 12:27 Freq: Status: Active Protocol: Document 03/12/18 15:25 [facility] (Rec: 03/12/18 15:30 [facility] [id number]) OT-Transfer Assessment Sit to and From Stand Sit to and from Stand Maximum Assistance 2 Person Assistance Transfers Transfer Ability Moderate Assistance 1 Person Assistance 2 Person Assistance Technique Transfer Destination Bedside Commode Chair Transfer Technique Stand Step Pivot Devices Transfer Assistive Devices Gait Belt Front Wheeled Walker Orthotic/Prosthetic Devices or Brace: Yes Comments Mobility Comments As pt tires needing more assist for balance. JR x 2 to MODA x 2 versus MAX A X 1. M8 OT- IP Objective Assessments Start: 03/10/18 12:27 Freq: Status: Active Protocol: Document 03/11/18 12:49 [facility] (Rec: 03/11/18 13:02 [facility] [email or web address]) OT-Muscle Tone Assessment Muscle Tone WNL Yes M9 OT- IP Assessment and Plan Start: 03/10/18 12:27 Freq: Status: Active Protocol: Document 03/12/18 15:25 [facility] (Rec: 03/12/18 15:30 [facility] [id number]) OT Summary Assessment and Plan Potential Rehabilitation Potential Good Analytic Complexity at Evaluation Moderate Summary Progress Towards Goals Slow Progress due to Pain Slow Progress due to Medical Issues Slow Progress due to Cognition Goals Grooming Goal Standby Assistance Dressing Goal Minimal Assistance Toileting Goal Standby Assistance Bathing Goal Minimal Assistance Toilet Transfer Goal Standby Assistance Shower Transfer Goal Minimal Assistance Patient/Caregiver Education Goal Demonstrate Post-Op Precautions Caregiver Independent Assisting Patient Days to Meet Goals 7 Frequency of Treatment Frequency Of Treatment Once a Day Treatment Plan OT Treatment Plan ADL Training Functional Cognition Training Functional Mobility Patient/Family Education Discharge Planning Other Treatment Recommendations and Next Standing for grooming needs, Treatment Focus AED and LB dressing. Discharge Recommendations OT Discharge Recommendations SNF Rehab Home Equipment Needs BSC, FWW, shower chair, LB dressing AED
--- NOTE | 2018-03-12 18:44 | P.CONS_ITS ---
History of Present Illness Date Patient Seen: 03/12/18 Time Patient Seen: 18:43 Chief complaint: Low back pain, fell 3ft Reason for consult: compression fx Requesting provider: Yaz Tadeo Narrative: 52-year-old female complaining of back pain. She and her are working on their property with building new house while having a small cabin transported and delivered to the property. They have been excavating around this for the foundation, and she fell over backwards down into the excavated ditch approximately 5 ft landing on her back on 03/09/2018. She had immediate pain across the back and had to be transported to the emergency room. She was admitted for pain control after being found to have 2 compression fractures in her back. The pain was horrible for the 1st few days but it is getting a little bit better now. She was actually able to get out of bed and walk with physical therapy. Still using IV pain control. However, she does not like the feeling of pain medication as it is making her quite groggy. She denies pain numbness or weakness going into her legs. The back pain is the about a constant 5/10 currently even at rest. However, this is the 1st time she has been sitting in a chair since her injury. She also has complaints of right lower abdominal discomfort, worse with food, but this has been getting better. She has not had a bowel movement since her injury. [facility] Medical History Asthma (Acute) Social History household members: spouse Smoking Status: Never smoker alcohol intake: never Meds Home Medications Medication Instructions Recorded Confirmed Type albuterol sulfate 1 puff INHALATION Q4-6H PRN 03/09/18 03/09/18 History Allergies Allergy/AdvReac Type Severity Reaction Status Date / Time No Known Drug Allergies Allergy Verified 03/09/18 16:08 Review of Systems Constitutional Constitutional: Denies weight loss Eyes Eyes: Denies double vision ENT Ears, Nose, Mouth, and Throat: No difficulty swallowing Cardiovascular Cardiovascular: Denies chest pain with activity and Denies fainting Respiratory Respiratory: Denies cough Gastrointestinal Gastrointestinal: Denies dysphagia and Reports heartburn Genitourinary Genitourinary: Reports urinary incontinence Musculoskeletal Musculoskeletal: Reports system reviewed; no additional complaints, except as documented Neurologic Neurologic: Denies syncope Psychiatric Psychiatric: Denies anxiety Endocrine Endocrine: Denies change in body appearance Hematologic/Lymphatic Hematologic/Lymphatic: Denies easy bleeding Allergic/Immunologic Allergic/Immunologic: Reports GI upset with certain foods Exam Vital Signs (past 8 hours): - 03/12/18 12:00 03/12/18 16:00 Temperature 97.3 F L 97.7 F Pulse Rate 75 71 Respiratory Rate 18 18 Blood Pressure 132/80 H 132/78 H Pulse Oximetry 96 96 Oxygen Delivery Method Room Air Oxygen Flow Rate 2 Const Orientation: alert and oriented x3 Resp Auscultation: clear to auscultation bilaterally Cardio Rate: regular rate Rhythm: regular rhythm Back/Spine/Pelvis Other: Tender to palpation across the thoracolumbar junction and the upper bilateral lumbar paraspinals. Intact integument across the back. 5/5 motor, 2 + reflexes, intact sensation, 1+ pulses, negative straight leg raising both lower extremities. Objective Imaging CT lumbar: My impression: Acute fractures of T12 and L1. Minimal buckling of the superior endplate of T12 with minimal stenosis in the central canal but no neural compression. No disruption of the posterior wall of L1. Labs Result Diagrams: 03/12/18 14:14 03/12/18 14:14 Labs: Laboratory Results - last 24 hr 03/12/18 03/12/18 14:14 14:14 WBC 7.7 RBC 3.75 L Hgb 11.9 L Hct 34.4 L MCV 91.9 MCH 31.7 MCHC 34.5 RDW 13.2 Plt Count 161 Neut % (Auto) 83.1 H Lymph % (Auto) 8.9 L [place] % (Auto) 6.1 Eos % (Auto) 1.4 L Baso % (Auto) 0.5 Neut # (Auto) 6400 H Sodium 137 Potassium 3.5 Chloride 105 Carbon Dioxide 23 BUN 7 Creatinine 0.50 L Estimated GFR > 60.0 BUN/Creatinine Ratio 14.0 Glucose 85 Calcium 8.0 L Total Bilirubin 0.9 Conjugated Bilirubin 0.0 Unconjugated Bilirubin 0.5 AST 21 ALT 32 Alkaline Phosphatase 80 Total Protein 5.5 L Albumin 2.8 L Globulin 2.7 Albumin/Globulin Ratio 1.0 Assessment & Plan Plan: Assessment/Plan Narrative: We discussed treatment options. The 1st would be conservative with bracing and pain medication. The other option would be to consider kyphoplasty at T12 and L1. I explained that this is more of a quick fix for the fracture, and that conservative measures would still allow the fractures to heal on their own. Risks and benefits of kyphoplasty were discussed including but not limited to medical risk with IA, CVA, DVT, PE, , infection, bleeding, scarring, injury to nerves with pain numbness weakness paralysis, failure to alleviate symptoms, need for further surgery. As this is more of a traumatic injury in the standard mild osteoporotic fracture, I would expect longer recovery time for her as she most likely had some soft tissue injury including muscles and ligaments as well. She is already starting to feel better and had more progress with activity today. I think for right now I would continue with conservative management and watch how this progresses. She needs to wean off the IV pain medication and switch to orals. She also needs to make more progress with physical therapy prior to discharge home. They are living situation is quite difficult right now as the house is not finished, and the cabin is not quite ready to live in. They also have stairs to get up to either of them. Short-term jail may be an option for her. We did discuss that if her pain does not improve with conservative measures, we certainly could consider kyphoplasty at a future date. She and her are in agreement on this and we will continue with conservative care for now. Time Spent With Patient Time with patient: 25 - 35 minutes
[2018-03-12] MEDS: SENNOSIDES 8.6 MG TABLET 17.2 MG PO (20:43)
[2018-03-12] MEDS: PANTOPRAZOLE 40 MG VIAL IV (20:44)
--- NOTE | 2018-03-12 21:59 | PC.NURSE ---
EVENING SHIFT NOTE: Patient remained in chair for most of shift. Patient stated that pain was tolerable while in chair reclining. Patient using AIR DEFENSE ARTILLERY OFFICER morphine minimally this shift. Patient had urine incontinence while in chair due to lack of mobility. Patient cleaned and walked around room with FWW and 1 person assist while using back brace. Patient states that her mobility is improving. No acute distress, AIR DEFENSE ARTILLERY OFFICER effective for pain control at this time. at bedside. Will continue to monitor.
[2018-03-13] VITALS (10 sets, daily range): BP systolic 124–141; BP diastolic 64–74; PULSE 72–76; RESP 15–18; TEMP 36.6–37.1; O2SAT 92–96
--- NOTE | 2018-03-13 00:20 | PC.NURSE ---
Addendum entered by Yadira Dumont R.N. 03/13/18 05:50: Slept at intervals. Skipped repositioning x 1 as patient asleep and hadn't been sleeping well; patient expressed appreciation. Denies nausea and vertigo this morning and states pain is tolerable at 3/10. Used 3mg of AMMUNITION COMPONENTS INSPECTOR during this shift. Original Note: Patient is alert and oriented. Breath sounds remain very diminished as respirations are shallow. Is on oxygen at 2L/min per NC with sat of 96%; remains on continuous pulse oximetry. HRR. Currently denies nausea. States vertigo is still present but much better. Has not had BM since 03/08 but is passing flatus; BT are hypoactive and abdomen is slightly firm. Has been voiding on bedpan during the night as not getting up. States back pain is currently 3/10; encouraged to use AMMUNITION COMPONENTS INSPECTOR prior to movement as that tends to exacerbate her pain. Assisted to reposition q2h. Wearing bilateral SCD's. Fall risk score is high and bed alarm is activated. Spouse rooming in.
[2018-03-13] MEDS: MORPHINE PCA 30 MG/30 ML PCA.VIAL IV (05:39)
[2018-03-13] MEDS: ALBUTEROL HFA 60 PUFF/8 GM INH INH (05:42)
[2018-03-13] MEDS: DOCUSATE 100 MG CAPSULE PO ×2 (09:49→20:18)
[2018-03-13] MEDS: CALCITONIN,SALMON, NASAL SPRAY 1 SPRAYS NASAL (09:50)
--- NOTE | 2018-03-13 10:10 | PC.NURSE ---
With lumbar brace in place, Nicky has been up to the chair and to the bathroom this AM. Now reclining in chair. States pain 3/10 with occasional FISHER EEL use. Plan per PA discussion early this AM was to transition off FISHER EEL to oral narcotics, and D/C Fentanyl patch, but there were no orders written for that. Call placed to Dr. Romero to expedite orders. Nicky has not had a BM for 5 days. Given [place] this Am along with prune juice. She is resistant to idea of suppository. Will continue to monitor pain and bowel status, enc. activity. Ming supportive at bedside.
--- NOTE | 2018-03-13 11:08 | PT.IPTN ---
Current Diagnoses Wedge compression fracture of T11-T12 vertebra, initial encounter for closed fracture (03/09/18) Wedge compression fracture of first lumbar vertebra, initial encounter for closed fracture (03/09/18) Physical Therapy Treatment Note M2 PT-IP Current Condition Start: 03/10/18 11:49 Freq: NEEDED Status: Active Protocol: Document 03/10/18 18:05 DLM (Rec: 03/10/18 18:30 DLM [id number]) Physical Therapy Current Condition Current Condition Evaluation Date 03/10/18 Treatment Diagnosis T12/L1 compression fx following a 3 ft fall, back pain and impaired gait Onset Date 03/09/18 Precautions Lumbar Precautions Log Roll No Twisting Limit Bending Lifting Restriction of 10 lbs Brace BOA [place] applied this visit for lumbar corset brace, pt to wear it as needed for pain control M3 PT-IP Subjective Start: 03/10/18 11:49 Freq: NEEDED Status: Active Protocol: Document 03/13/18 11:08 AB (Rec: 03/13/18 11:57 AB [id number]) Subjective Physical Therapy Visit Type Type Treatment Note Visit Start Time 11:08 Visit Stop Time 11:41 Total Visit Minutes 33 Number of CASINO FLOORPERSON Visits 0 Physical Therapy Visit Comments Patient Comments pt agreeeable to do therapy Therapy Pain Assessment Pain When Pain Assessed At Rest Pain Present Pain Present Pain Reported Location Lower Back Intensity 3 Scale Used Numeric (1 - 10) Pain Management Techniques Timing of Activity with Medications M4 PT-IP Mobility and Gait Start: 03/10/18 11:49 Freq: NEEDED Status: Active Protocol: Document 03/13/18 11:08 AB (Rec: 03/13/18 11:57 AB [id number]) PT-Transfer Assessment Sit to and From Stand Sit to and from Stand Minimal Assistance Equipment Transfer Assistive Device Gait Belt Front Wheeled Walker Orthotic/Prosthetic Devices or Brace: Yes Transfers Transfer Destination Toilet Transfer Technique pt ambulated to the toilet using FWW. Transfer Ability Level of Assist Minimal Assistance Comments Mobility Comments pt has BOA back support brace during ambulation. assisted pt with donning and adjusting back brace. pt requested to use the toilet after ambulation and ambulated to the toilet using FWW CGA to min A and cues. pt completed sit to stand from the toilet using grab bar CGA to min A. pt was able to maintain standing using FWW for support while assited with brief management. Gait Assessment Gait Gait Assistance Required: Contact Guard Assist Minimum Assistance Distance (Feet) (feet) 100 Able to Maintain Weight Bearing Status Yes During Gait Assistive Devices Assistive Device Gait Belt Front Wheeled Walker Orthotic/Prosthetic Devices or Brace: Yes Gait Deviations General Gait Pattern Decreased Stride Length Decreased Feet Clearance Factors Limiting Gait Function Factors Limiting Gait Function Decreased Activity Tolerance Decreased Strength Limited Range of Motion Pain Poor Balance M5 PT-IP Objective Assessments Start: 03/10/18 11:49 Freq: NEEDED Status: Active Protocol: Document 03/10/18 18:05 DLM (Rec: 03/10/18 18:30 DLM [id number]) Orientation Orientation/Cognition Level of Alertness Alert Orientation Name Age Birthday Month Date Year Day of Week Place Situation Language Function Ability No Deficits Noted Safety Awareness Understands Safety Issues Memory Description No Deficits Noted Comments she wears contacts and has low vision when they are not worn Gross Range of Motion Upper Extremity ROM Assessment Within Functional Limits Lower Extremity ROM Assessment Within Functional Limits Impairments back pain with LE movement Strength Upper Extremity Strength Assessment Within Functional Limits Comments Strength Comments unable to MMT LE strength due to back pain and nausea, pt able to weight bear on LE's for standing and able to move them slowly in bed, back pain with LE movements Coordination Assessment Gross Coordination Gross Coordination WNL Sensation Assessment Sensation Gross Sensation WNL Muscle Tone Muscle Tone WNL Yes M6 PT-IP Treatment Start: 03/10/18 11:49 Freq: NEEDED Status: Active Protocol: Document 03/13/18 11:08 AB (Rec: 03/13/18 11:57 AB [id number]) Physical Therapy Treatment Education Education Provided Safety M7 PT-IP Assessment and Plan Start: 03/10/18 11:49 Freq: NEEDED Status: Active Protocol: Document 03/13/18 11:08 AB (Rec: 03/13/18 11:57 AB [id number]) PT Summary Assessment and Plan Potential Rehabilitation Potential Good Summary Impairments Pain ROM Strength Balance Coordination Sensation Cognition Bed Mobility Transfers Gait Activity Tolerance Progress Towards Goals Slow Progress due to Pain Slow Progress due to Medical Issues Slow Progress due to Activity Tolerance Assessment Summary pt improving with mobility but continues to require one person assist with mobility. d/c plan depending on progress in mobility and if spouse will be able to assist pt safely. Goals Bed Mobility Goal Minimal Assistance Transfer Goal Standby Assistance Front Wheeled Walker Gait Goal Standby Assistance Front Wheel Walker Gait Distance 100 Other Goals up and down 3 steps with rail and min assist Days to Meet Goals 5 Frequency of Treatment Frequency Of Treatment Twice a Day Treatment Plan Physical Therapy Treatment Plan Bed Mobility Training Transfer Training Gait Training Therapeutic Exercise Discharge Planning Hot or Cold Pack Other Recommendations and Next Treatment don and doff brace in supine Focus to assist with pain management , progress to up in chair as tolerated by pain and nausea Recommendations To Nursing Amount of Assist Needed 1 Person Assist Discharge Recommendations PT Discharge Recommendations Home with 24/7 Assist SNF Rehab Other Discharge Recommendations SNF vs home with 24/7 assist
--- NOTE | 2018-03-13 11:54 | P.PN_ITS ---
Subjective Date Patient Seen: 03/13/18 Time Patient Seen: 07:37 Interval history: Patient is laying in bed comfortably. is sitting bedside. Patient reports that she feels a lot better compared to yesterday; vertigo episodes have decreased. She was able to sit in the chair, do activities with PT and walk the halls. She would like to sit more in the chair today. She reports wearing the lumbar corset occasionally throughout the day; does not sleep with the corset. Her pain is well managed. She reports R lower abdominal pain has improved however it is aggravated when eating. She still has not had a bowel movement since her injury. Patient denies fever, chills or chest pain. Exam Vital Signs (past 8 hours): - 03/13/18 05:15 03/13/18 05:44 03/13/18 09:19 Temperature 98.2 F Pulse Rate 76 Respiratory Rate 16 Blood Pressure 137/64 H Pulse Oximetry 96 96 96 Oxygen Delivery Method Room Air Oxygen Flow Rate 2 Narrative Exam Narrative: Patient is AOx3. Patient is a well developed women in no acute distress. No pain on palpation of the R lower abdomen. Tender to palpation across the R thoracic lumbar region. Pulses 2+ throughout. Muscle strength 5/5 in dorsiflex, plantarflex and conservation policy analyst bilaterally. Sensation to light touch intact in the lower and upper extremities bilaterally. Calfs are soft, compressible and non tender bilaterally. Objective Labs Result Diagrams: 03/12/18 14:14 03/12/18 14:14 Labs: Laboratory Results - last 24 hr 03/12/18 03/12/18 14:14 14:14 WBC 7.7 RBC 3.75 L Hgb 11.9 L Hct 34.4 L MCV 91.9 MCH 31.7 MCHC 34.5 RDW 13.2 Plt Count 161 Neut % (Auto) 83.1 H Lymph % (Auto) 8.9 L [place] % (Auto) 6.1 Eos % (Auto) 1.4 L Baso % (Auto) 0.5 Neut # (Auto) 6400 H Sodium 137 Potassium 3.5 Chloride 105 Carbon Dioxide 23 BUN 7 Creatinine 0.50 L Estimated GFR > 60.0 BUN/Creatinine Ratio 14.0 Glucose 85 Calcium 8.0 L Total Bilirubin 0.9 Conjugated Bilirubin 0.0 Unconjugated Bilirubin 0.5 AST 21 ALT 32 Alkaline Phosphatase 80 Total Protein 5.5 L Albumin 2.8 L Globulin 2.7 Albumin/Globulin Ratio 1.0 CT of lumbar done on 03/09/18. #1. Acute T12 and L1 superior endplate compression fractures. Mild retropulsion of the T12 posterior fracture fragment results in mild spinal canal stenosis at that level. #2. Chronic-appearing bilateral L5 pars defects resulting in 4 mm of anterolisthesis of L5 on S1. Assessment & Plan Plan: Assessment/Plan Narrative: Assessment: T12 and L1 compression fracture Plan: Continue with conservative treatment. Wean off IV pain meds and switch to oral. Continue mobilizing with PT.
--- NOTE | 2018-03-13 13:17 | CM.DPC ---
DCP: continued: case received, EMR for last few days reviewed. Noted hand-off from DCPlanner Viviana from yesterday afternoon: indicates initial discussion with pt and her re snf, SNF choice list: no decision made. Viviana notes she did confirm that [employer] would need to authorize a snf stay. Discussed case in morning Care Team meeting. Dr. Persaud noted that pt was doing much better today as her pain management had improved. He expects that she will be able to return home once she is able to work more consistantly with therapy. PT Uma now recommending home with assist vs snf and the assist would seem to be basically CGA. P: Follow up tomorrow to continue the DCplanning process.
[2018-03-13] MEDS: MORPHINE PCA 30 MG/30 ML PCA.VIAL 4 MG IV (14:25)
--- NOTE | 2018-03-13 16:05 | OT.IP.TRT ---
Current Diagnoses Wedge compression fracture of T11-T12 vertebra, initial encounter for closed fracture (03/09/18) Wedge compression fracture of first lumbar vertebra, initial encounter for closed fracture (03/09/18) Occupational Therapy Treatment Note M2 OT-IP Current Condition Start: 03/10/18 12:27 Freq: Status: Active Protocol: Document 03/11/18 12:49 [facility] (Rec: 03/11/18 13:02 [facility] [id number]) Occupational Therapy Current Condition Current Condition Evaluation Date 03/11/18 Treatment Diagnosis T12 and L1 compression fracture Diagnosis Onset Date 03/09/18 Post Operative Precautions Lumbar Precautions Log Roll No Twisting Limit Bending Lifting Restriction of 10 lbs M3 OT- IP Subjective and Pain Start: 03/10/18 12:27 Freq: Status: Active Protocol: Document 03/13/18 15:55 [facility] (Rec: 03/13/18 16:05 [facility] [id number]) OT- Subjective Occupational Therapy Visit Type Type Treatment Note Visit Start Time 14:00 Visit Stop Time 14:40 Total Visit Minutes 40 Notes Pt wanting to sponge off. OT Pain Assessment Pain When Pain Assessed At Rest Pain Present Pain Present Pain Reported Location Lower Back Intensity 7 Scale Used Numeric (1 - 10) M4 OT- IP ADL's Start: 03/10/18 12:27 Freq: Status: Active Protocol: Document 03/13/18 15:55 [facility] (Rec: 03/13/18 16:05 [facility] [id number]) OT ADL-Dressing General Eval Lower Body Dressing Ability Total Assistance Comments OT Dressing Comments Total assist to saurav/doff back brace. Initiated training with pt's to saurav/doff brace. OT ADL-Toileting General Evaluation Toileting Ability Minimal Assistance Areas Needing Assistance Manage Clothing Comments OT Toileting Comments Pt able to use BSC over toilet and heavy use of grab bars and assist to help lower to BSC. JR for balance while pt standing to do pericare needs. OT ADL-Bathing Bathing Type Bathing Type Sponge Bath General Evaluation Bathing Ability Maximal Assistance Areas Needing Assistance Retrieving/Setting Up Items Wash/Dry Upper Body Wash/Dry Back Wash/Dry Perineal Area Wash/Dry Lower Extremities Devices Bathing Equipment Shower Chair with Arms Comments OT Bathing Comments Pt not able to tolerate sitting on BSC with arm support and needing physical support to help hold her back due to pain and having to assist for sponge bath. M6 OT- IP Functional Cognition Start: 03/10/18 12:27 Freq: Status: Active Protocol: Document 03/13/18 15:55 [facility] (Rec: 03/13/18 16:05 [facility] [id number]) Cognitive Factors Limiting Selfcare Function Cognitive Ability Level of Alertness Alert Patient Orientation Name Place Situation Attention Span Ability Capable of Focused Attention Capable of Sustained Attention Ability to Follow Commands Able to Follow One Step Commands Memory Description Short Term Impaired Safety Awareness Underestimates Need for Assistance Cognitive Comments Cognitive Assessment Comments Pt able to follow simple commands but later when PT came to see pt did not remember detail of OT session. M7 OT- IP Mobility and Balance Start: 03/10/18 12:27 Freq: Status: Active Protocol: Document 03/13/18 15:55 [facility] (Rec: 03/13/18 16:05 [facility] [id number]) OT-Transfer Assessment Sit to and From Stand Sit to and from Stand Minimal Assistance Transfers Transfer Ability Standby Assistance Contact Guard Assistance Technique Transfer Destination Bedside Commode Chair Devices Transfer Assistive Devices Gait Belt Front Wheeled Walker Orthotic/Prosthetic Devices or Brace: Yes M8 OT- IP Objective Assessments Start: 03/10/18 12:27 Freq: Status: Active Protocol: Document 03/11/18 12:49 [facility] (Rec: 03/11/18 13:02 [facility] [id number]) OT-Muscle Tone Assessment Muscle Tone WNL Yes M9 OT- IP Assessment and Plan Start: 03/10/18 12:27 Freq: Status: Active Protocol: Document 03/13/18 15:55 [facility] (Rec: 03/13/18 16:05 [facility] [id number]) OT Summary Assessment and Plan Summary Progress Towards Goals Slow Progress due to Pain Slow Progress due to Cognition Assessment Summary Pt moving much better however main barrier at home is steps and set-up at home. Pt would benefit from short rehab stay to increase ADl's and functional mobility to prior level pt did not use a device. Goals Days to Meet Goals 7 Frequency of Treatment Frequency Of Treatment Once a Day Treatment Plan Other Treatment Recommendations and Next CAregiver training for brace Treatment Focus management. Discharge Recommendations OT Discharge Recommendations SNF Rehab Home Equipment Needs BSC, FWW, shower chair, LB dressing AED
--- NOTE | 2018-03-13 16:45 | PT.IPTN ---
Current Diagnoses Wedge compression fracture of T11-T12 vertebra, initial encounter for closed fracture (03/09/18) Wedge compression fracture of first lumbar vertebra, initial encounter for closed fracture (03/09/18) Physical Therapy Treatment Note M2 PT-IP Current Condition Start: 03/10/18 11:49 Freq: NEEDED Status: Active Protocol: Document 03/10/18 18:05 DLM (Rec: 03/10/18 18:30 DLM [id number]) Physical Therapy Current Condition Current Condition Evaluation Date 03/10/18 Treatment Diagnosis T12/L1 compression fx following a 3 ft fall, back pain and impaired gait Onset Date 03/09/18 Precautions Lumbar Precautions Log Roll No Twisting Limit Bending Lifting Restriction of 10 lbs Brace BOA [place] applied this visit for lumbar corset brace, pt to wear it as needed for pain control M3 PT-IP Subjective Start: 03/10/18 11:49 Freq: NEEDED Status: Active Protocol: Document 03/13/18 16:45 AB (Rec: 03/13/18 17:12 AB [email or web address]) Subjective Physical Therapy Visit Type Type Treatment Note Visit Start Time 16:45 Visit Stop Time 17:07 Total Visit Minutes 22 Number of STRAWHAT BLOCKING OPERATOR Visits 0 Physical Therapy Visit Comments Patient Comments pt agreeable to do therapy and requested to use the toilet afterwards Therapy Pain Assessment Pain When Pain Assessed At Rest Pain Present Pain Present Pain Reported Location Lower Back Scale Used pain scale not stated M4 PT-IP Mobility and Gait Start: 03/10/18 11:49 Freq: NEEDED Status: Active Protocol: Document 03/13/18 16:45 AB (Rec: 03/13/18 17:12 AB [id number]) PT-Transfer Assessment Sit to and From Stand Sit to and from Stand Minimal Assistance 1 Person Assistance Equipment Transfer Assistive Device Gait Belt Front Wheeled Walker Comments Mobility Comments sit <>stand with 2 attempts requiring min A and cues. assisted with back brace adjustment Gait Assessment Gait Gait Assistance Required: Contact Guard Assist Minimum Assistance Distance (Feet) (feet) 100 Able to Maintain Weight Bearing Status Yes During Gait Assistive Devices Assistive Device Gait Belt Front Wheeled Walker Orthotic/Prosthetic Devices or Brace: Yes Gait Deviations General Gait Pattern Decreased Stride Length Decreased Feet Clearance Factors Limiting Gait Function Factors Limiting Gait Function Decreased Activity Tolerance Decreased Strength Pain Poor Balance Comments Gait Comments pt ambulated in hallway and requested to use the toilet afterwards. pt ambulated towards the toilet using FWW CGA to min A and cues. pt wanted to sit on the toilet for a few minutes. instructed to use call light for assist when ready. NAC aware. M5 PT-IP Objective Assessments Start: 03/10/18 11:49 Freq: NEEDED Status: Active Protocol: Document 03/10/18 18:05 DLM (Rec: 03/10/18 18:30 DLM [id number]) Orientation Orientation/Cognition Level of Alertness Alert Orientation Name Age Birthday Month Date Year Day of Week Place Situation Language Function Ability No Deficits Noted Safety Awareness Understands Safety Issues Memory Description No Deficits Noted Comments she wears contacts and has low vision when they are not worn Gross Range of Motion Upper Extremity ROM Assessment Within Functional Limits Lower Extremity ROM Assessment Within Functional Limits Impairments back pain with LE movement Strength Upper Extremity Strength Assessment Within Functional Limits Comments Strength Comments unable to MMT LE strength due to back pain and nausea, pt able to weight bear on LE's for standing and able to move them slowly in bed, back pain with LE movements Coordination Assessment Gross Coordination Gross Coordination WNL Sensation Assessment Sensation Gross Sensation WNL Muscle Tone Muscle Tone WNL Yes M6 PT-IP Treatment Start: 03/10/18 11:49 Freq: NEEDED Status: Active Protocol: Document 03/13/18 16:45 AB (Rec: 03/13/18 17:12 AB [email or web address]) Physical Therapy Treatment Education Education Provided Precautions Safety M7 PT-IP Assessment and Plan Start: 03/10/18 11:49 Freq: NEEDED Status: Active Protocol: Document 03/13/18 16:45 AB (Rec: 03/13/18 17:12 AB [id number]) PT Summary Assessment and Plan Potential Rehabilitation Potential Good Summary Impairments Pain ROM Strength Balance Bed Mobility Transfers Gait Activity Tolerance Progress Towards Goals Progressing Toward Goals Assessment Summary pt progressing with mobility but continues to require one person assist. d/c plan depending on progress and if spouse will be able to assist pt safely at home. will continue to assess. Goals Bed Mobility Goal Minimal Assistance Transfer Goal Standby Assistance Front Wheeled Walker Gait Goal Standby Assistance Front Wheel Walker Gait Distance 100 Other Goals up and down 3 steps with rail and min assist Days to Meet Goals 5 Frequency of Treatment Frequency Of Treatment Twice a Day Treatment Plan Physical Therapy Treatment Plan Bed Mobility Training Transfer Training Gait Training Therapeutic Exercise Discharge Planning Hot or Cold Pack Other Recommendations and Next Treatment don and doff brace in supine Focus to assist with pain management , progress to up in chair as tolerated by pain and nausea Recommendations To Nursing Amount of Assist Needed 1 Person Assist Discharge Recommendations PT Discharge Recommendations Home with 24/7 Assist SNF Rehab Other Discharge Recommendations SNF vs home with 24/7 assist
[2018-03-13] MEDS: SODIUM CHLORIDE 0.9% 500 ML 21 ML IV (17:33)
[2018-03-13] MEDS: SODIUM CHLORIDE 0.9% 1,000 ML 21 ML IV (17:33)
--- NOTE | 2018-03-13 19:16 | P.PN_ITS ---
Subjective Date Patient Seen: 03/13/18 Time Patient Seen: 12:13 Interval history: Admitted to the trauma to the back of accidental fall at home she has a T12 fracture seen by Dr. gillespie from the Spine surgery does not think there is any need for intervention at this time and conservative management pain control she also has been very nauseous initially but much better now Plan is to wean the SIDING MECHANIC and start p.o. OxyContin along with the medication for pain breakthrough pain Exam Vital Signs (past 8 hours): - 03/13/18 11:56 03/13/18 16:00 Temperature 98.8 F 98.8 F Pulse Rate 73 74 Respiratory Rate 16 18 Blood Pressure 132/64 H 124/67 H Pulse Oximetry 93 Oxygen Delivery Method Room Air Oxygen Flow Rate 2 Const General: cooperative, healthy appearing and comfortable Nutritional Appearance: overweight HENMT Head: normal to inspection Ears: hearing grossly normal bilaterally Nose: external nose normal Face and sinus: normal facial exam Eyes General: appearance normal, both eyes and all related structures Eyelids: eyelids normal Conjunctivae: conjunctivae normal Sclera: sclerae normal Pupils: PERRL EOM: EOM intact bilaterally Neck Neck: normal visual inspection Thyroid: thyroid normal Resp Effort & Inspection: normal respiratory effort Auscultation: clear to auscultation bilaterally Cardio Rate: regular rate Rhythm: regular rhythm Heart Sounds: S1 normal and S2 normal GI Inspection: normal to inspection Palpation: soft Back/Spine/Pelvis Back: back tenderness Skin General: no rashes or lesions noted Neuro General: alert, awake and oriented x3 Cranial Nerves: CN's II-XI intact bilaterally Cognition: normal cognition Speech: speech normal Motor: muscle tone normal throughout Extrem General: normal to inspection Objective Labs Result Diagrams: 03/12/18 14:14 03/12/18 14:14 Assessment & Plan Plan: Assessment/Plan Narrative: TRAUMATIC CLOSED FRACTURE OF THE SPINE CONSULT ID MANAGEMENT PAIN CONTROL BRACE PHYSICAL THERAPY OBESITY Time Spent With Patient Time with patient: less than 15 minutes
[2018-03-13] MEDS: SENNOSIDES 8.6 MG TABLET 17.2 MG PO (20:18)
[2018-03-13] MEDS: PANTOPRAZOLE 40 MG VIAL IV (20:18)
[2018-03-13] MEDS: OXYCODONE ER 10 MG TAB 20 MG PO (22:03)
[2018-03-13] MEDS: ONDANSETRON 4 MG ODT PO (22:16)
[2018-03-14] VITALS (10 sets, daily range): BP systolic 125–134; BP diastolic 53–76; PULSE 60–82; RESP 16–18; TEMP 36.5–36.9; O2SAT 91–95
[2018-03-14] MEDS: ACETAMINOPHEN 325 MG TABLET 650 MG PO ×3 (02:36→23:43)
--- NOTE | 2018-03-14 03:33 | PC.NURSE ---
Addendum entered by Yadira Dumont R.N. 03/14/18 04:11: Oximeter alarming and found sat monitor showing sat of 81% so oxygen restarted at 1L/min per [place]. States headache is still present but improved with severity now of /10. Original Note: Patient is alert and oriented. Breath sounds CTA with improved aeration although still diminished at bases. Currently on RA with continuous pulse oximeter reading of 94%. HRR. Denies nausea. BT present and passing flatus but still has not had a BM since 03/08. Denies urinary concerns and is getting up to bathroom to void. Spending night in recliner as states that is much more comfortable than sleeping in the bed. Denies back pain but is complaining of 03/07 headache mainly on right side of head. Dr Ruby informed of headache and patient only has scheduled Oxycodone CR ordered for pain. Received order for Tylenol and was administered; also provided ice pack for comfort. Wearing bilateral SCD's. Fall risk score is high but chair alarm not on as patient has been appropriately calling for assistance. Has requested not to be awakened during night for any repositioning.
--- NOTE | 2018-03-14 07:43 | PM.PNPO.1 ---
Subjective Date Patient Seen: 03/14/18 Time Patient Seen: 07:43 Interval history: She is doing much better. Pain is down to 2/10 at rest. She was up with physical therapy but still requiring some assistance. Exam Vital Signs (past 8 hours): - 03/14/18 02:33 03/14/18 04:10 03/14/18 05:25 Temperature 97.7 F Pulse Rate 75 Respiratory Rate 18 Blood Pressure 130/68 H Pulse Oximetry 94 94 94 Oxygen Delivery Method Nasal Cannula Oxygen Flow Rate 1 Const Orientation: alert and oriented x3 Back/Spine/Pelvis Other: Tender across the thoracolumbar junction. 5/5 motor both lower extremities. Objective Labs Result Diagrams: 03/12/18 14:14 03/12/18 14:14 Assessment & Plan Post-op Postoperative Overall she is doing much better. Continue to mobilize with her brace and physical therapy. She hopes to attempt stairs and possibly go home. At this point I would definitely continue with conservative management. She can follow back up my office in 1 week. Time Spent With Patient less than 15 minutes
[2018-03-14] MEDS: OXYCODONE ER 10 MG TAB 20 MG PO ×2 (08:44→21:14)
[2018-03-14] MEDS: SODIUM CHLORIDE 0.9% FLUSH 10 ML IV (08:45)
[2018-03-14] MEDS: DOCUSATE 100 MG CAPSULE PO ×2 (08:45→21:14)
[2018-03-14] MEDS: ENOXAPARIN 40 MG/0.4 ML SYRINGE SUBCUT (08:45)
[2018-03-14] MEDS: CALCITONIN,SALMON, NASAL SPRAY 1 SPRAYS NASAL (08:50)
--- NOTE | 2018-03-14 11:40 | OT.IP.EVAL ---
Addendum entered and electronically signed by Lori Gandara OT 03/14/18 12:39: treatment note instead of eval Original Note: Current Diagnoses Wedge compression fracture of T11-T12 vertebra, initial encounter for closed fracture (03/09/18) Wedge compression fracture of first lumbar vertebra, initial encounter for closed fracture (03/09/18) Past Medical History (Last Updated 03/12/18 @ 18:47 by Erasmo Jeronimo MD) Asthma (Acute) Occupational Therapy Inpatient Evaluation/Re-Eval M1 PT/OT-IP Prior Functional Status Start: 03/10/18 11:49 Freq: NEEDED Status: Active Protocol: Document 03/10/18 18:05 DLM (Rec: 03/10/18 18:30 DLM [id number]) Medical Review Prior Functional Status Medical History Reviewed Yes Diet/Fluid Consistency Regular Communication WNL Mobility and Gait Independent, active,no device, community distances, was painting at home at time of accident Activities of Daily Living and IADL's Independent, cares for 2 teenage children Social History Household Members spouse Living Arrangements House Number of Floors (Floors) One Floor Number of Stairs To Enter/Railing? 3, rail at front door but no rail on steps to bedroom Home Environment Standard Height Toilet Additional Social History Comment she likes in a tiny house while they are putting in foundation for their new house which was transported down from [place], her yard is like a construction project at this time, she reports a FWW will not fit into some parts of her tiny house, the tiny house is about 200 square feet, Children are ages 13 and 16. M1 PT/OT-IP Prior Functional Status Start: 03/10/18 12:27 Freq: NEEDED Status: Active Protocol: Document 03/11/18 12:49 [facility] (Rec: 03/11/18 13:02 [facility] [id number]) Medical Review Prior Functional Status Medical History Reviewed Yes Diet/Fluid Consistency Regular Thin Liquids Communication WNL Mobility and Gait Independent, active,no device, community distances, was painting at home at time of accident Activities of Daily Living and IADL's Independent, cares for 3 teenage children Social History Household Members spouse Living Arrangements House Number of Floors (Floors) One Floor Number of Stairs To Enter/Railing? 3, rail at front door but no rail on steps to bedroom Home Environment Standard Height Toilet Additional Social History Comment she likes in a tiny house while they are putting in foundation for their new house which was transported down from [place], her yard is like a construction project at this time, she reports a FWW will not fit into some parts of her tiny house, the tiny house is about 200 square feet, Children are ages 13 and 16. M2 OT-IP Current Condition Start: 03/10/18 12:27 Freq: Status: Active Protocol: Document 03/11/18 12:49 [facility] (Rec: 03/11/18 13:02 [facility] [id number]) Occupational Therapy Current Condition Current Condition Evaluation Date 03/11/18 Treatment Diagnosis T12 and L1 compression fracture Diagnosis Onset Date 03/09/18 Post Operative Precautions Lumbar Precautions Log Roll No Twisting Limit Bending Lifting Restriction of 10 lbs M3 OT- IP Subjective and Pain Start: 03/10/18 12:27 Freq: Status: Active Protocol: Document 03/14/18 11:25 [facility] (Rec: 03/14/18 11:39 [id number]) OT- Subjective Occupational Therapy Visit Type Type Treatment Note Visit Start Time 09:15 Visit Stop Time 10:30 Total Visit Minutes 75 Notes Pt wanting to use the toilet. Occupational Therapy Visit Comments Patient/Caregiver Goals Pt wanting to see if she could put the brace on and use the toilet on her own. OT Pain Assessment Pain When Pain Assessed At Rest Pain Present Pain Present Pain Reported Pt reporting having headaches, nursing notified. M4 OT- IP ADL's Start: 03/10/18 12:27 Freq: Status: Active Protocol: Document 03/14/18 11:25 [facility] (Rec: 03/14/18 11:39 [facility] [id number]) OT ADL-Dressing General Eval Upper Body Dressing Ability Moderate Assistance Lower Body Dressing Ability Minimal Assistance Comments OT Dressing Comments Pt educated on AED for LB dressing and able to use sock aid to saurav socks and able to reach over to get brief over her feet. Pt needing assist for balance and set-up for items. MOD A to help with brace as pt does not have her contacts in and not able to see clearly. OT ADL-Toileting General Evaluation Toileting Ability Contact Guard Assistance Areas Needing Assistance Manage Clothing Comments OT Toileting Comments Pt doing better, use of grab bars and mildly unsteady at first as pt moving fast. M6 OT- IP Functional Cognition Start: 03/10/18 12:27 Freq: Status: Active Protocol: Document 03/14/18 11:25 [facility] (Rec: 03/14/18 11:39 [facility] [id number]) Cognitive Factors Limiting Selfcare Function Cognitive Ability Level of Alertness Alert Patient Orientation Name Place Situation Attention Span Ability Capable of Focused Attention Capable of Sustained Attention Ability to Follow Commands Able to Follow Multi-Step Commands Memory Description Short Term Impaired Working Impaired Safety Awareness Underestimates Need for Assistance Cognitive Tests ACL Pt scored 5.4 on the ACL which implies may live alone and work in a job with a wide margin for error. Cognitive Comments Cognitive Assessment Comments Pt doing much better today, occasional vc to repeat instructions and able to follow multiple commands today . Pt a bit impulsive and needing vc to slow down. M7 OT- IP Mobility and Balance Start: 03/10/18 12:27 Freq: Status: Active Protocol: Document 03/14/18 11:25 [facility] (Rec: 03/14/18 11:39 [facility] [id number]) OT-Transfer Assessment Sit to and From Stand Sit to and from Stand Standby Assistance Contact Guard Assistance Transfers Transfer Ability Standby Assistance Contact Guard Assistance Technique Transfer Destination Chair Toilet Devices Transfer Assistive Devices Gait Belt Front Wheeled Walker Orthotic/Prosthetic Devices or Brace: Yes M8 OT- IP Objective Assessments Start: 03/10/18 12:27 Freq: Status: Active Protocol: Document 03/11/18 12:49 [facility] (Rec: 03/11/18 13:02 [facility] [id number]) OT-Muscle Tone Assessment Muscle Tone WNL Yes M9 OT- IP Assessment and Plan Start: 03/10/18 12:27 Freq: Status: Active Protocol: Document 03/14/18 11:25 [facility] (Rec: 03/14/18 11:39 [facility] [id number]) OT Summary Assessment and Plan Summary Progress Towards Goals Progressing Toward Goals Assessment Summary Pt doing much better today, able to participate more with ADL's and looking to go home soon. Goals Days to Meet Goals 2 Frequency of Treatment Frequency Of Treatment Once a Day Treatment Plan OT Treatment Plan ADL Training Functional Cognition Training Functional Mobility Patient/Family Education Discharge Planning Other Treatment Recommendations and Next CAregiver training for brace Treatment Focus management. Discharge Recommendations OT Discharge Recommendations Home with Assistance Home Equipment Needs BSC, FWW, shower chair, LB dressing AED
--- NOTE | 2018-03-14 12:29 | PT.IPTN ---
Current Diagnoses Wedge compression fracture of T11-T12 vertebra, initial encounter for closed fracture (03/09/18) Wedge compression fracture of first lumbar vertebra, initial encounter for closed fracture (03/09/18) Physical Therapy Treatment Note M2 PT-IP Current Condition Start: 03/10/18 11:49 Freq: NEEDED Status: Active Protocol: Document 03/10/18 18:05 DLM (Rec: 03/10/18 18:30 DLM [id number]) Physical Therapy Current Condition Current Condition Evaluation Date 03/10/18 Treatment Diagnosis T12/L1 compression fx following a 3 ft fall, back pain and impaired gait Onset Date 03/09/18 Precautions Lumbar Precautions Log Roll No Twisting Limit Bending Lifting Restriction of 10 lbs Brace BOA [place] applied this visit for lumbar corset brace, pt to wear it as needed for pain control M3 PT-IP Subjective Start: 03/10/18 11:49 Freq: NEEDED Status: Active Protocol: Document 03/13/18 16:45 AB (Rec: 03/13/18 17:12 [facility] [email or web address]) Subjective Physical Therapy Visit Type Type Treatment Note Visit Start Time 16:45 Visit Stop Time 17:07 Total Visit Minutes 22 Number of [place] Visits 0 Physical Therapy Visit Comments Patient Comments pt agreeable to do therapy and requested to use the toilet afterwards Therapy Pain Assessment Pain When Pain Assessed At Rest Pain Present Pain Present Pain Reported Location Lower Back Scale Used pain scale not stated M4 PT-IP Mobility and Gait Start: 03/10/18 11:49 Freq: NEEDED Status: Active Protocol: Document 03/14/18 12:00 LJ (Rec: 03/14/18 12:29 LJ [id number]) PT-Transfer Assessment Sit to and From Stand Sit to and from Stand Standby Assistance 1 Person Assistance Equipment Transfer Assistive Device Gait Belt Front Wheeled Walker Orthotic/Prosthetic Devices or Brace: Yes Transfers Transfer Destination Chair Transfer Technique Forward/Backward Scoot Transfer Ability Level of Assist Standby Assistance Gait Assessment Gait Gait Assistance Required: Standby Assistance 1 Person Assist Able to Maintain Weight Bearing Status Yes During Gait Assistive Devices Assistive Device Gait Belt Straight Cane Front Wheeled Walker Orthotic/Prosthetic Devices or Brace: Yes Gait Deviations General Gait Pattern Decreased Stride Length Flexed Trunk Factors Limiting Gait Function Factors Limiting Gait Function Decreased Activity Tolerance Pain Comments Gait Comments Pt ambulated with FWW 500' with cues for framing body within walker, upright posture and shoulder relaxtion. Stair Climbing Assessment Evaluation Level of Assist On Stairs Contact Guard Assistance Devices Stair Climbing Assistive Devices Front Wheel Walker Technique/Endurance Stair Climbing Direction Ascend and Descend Number of Steps Climbed 3 Query Text: Stair Climbing Set # Repetitions (reps) 4 Comments Stair Climbing Comments CGA with pt using left side rail. Ascended and descended x 4 using forward ascend/ descend and sideways ascend/ descend with left leg leading both directions. Pt able to fold/unfold walker and place appropriately at top or bottom of stairs. PT-Balance Assessment Standing Balance and Reactions Static Standing Balance Ability Good Dynamic Standing Balance Ability Good M5 PT-IP Objective Assessments Start: 03/10/18 11:49 Freq: NEEDED Status: Active Protocol: Document 03/10/18 18:05 DLM (Rec: 03/10/18 18:30 [facility] [id number]) Orientation Orientation/Cognition Level of Alertness Alert Orientation Name Age Birthday Month Date Year Day of Week Place Situation Language Function Ability No Deficits Noted Safety Awareness Understands Safety Issues Memory Description No Deficits Noted Comments she wears contacts and has low vision when they are not worn Gross Range of Motion Upper Extremity ROM Assessment Within Functional Limits Lower Extremity ROM Assessment Within Functional Limits Impairments back pain with LE movement Strength Upper Extremity Strength Assessment Within Functional Limits Comments Strength Comments unable to MMT LE strength due to back pain and nausea, pt able to weight bear on LE's for standing and able to move them slowly in bed, back pain with LE movements Coordination Assessment Gross Coordination Gross Coordination WNL Sensation Assessment Sensation Gross Sensation WNL Muscle Tone Muscle Tone WNL Yes M6 PT-IP Treatment Start: 03/10/18 11:49 Freq: NEEDED Status: Active Protocol: Document 03/14/18 12:00 (Rec: 03/14/18 12:29 [id number]) Physical Therapy Treatment Education Education Provided Precautions M7 PT-IP Assessment and Plan Start: 03/10/18 11:49 Freq: NEEDED Status: Active Protocol: Document 03/14/18 12:00 (Rec: 03/14/18 12:29 [id number]) PT Summary Assessment and Plan Summary Impairments Pain Activity Tolerance Assessment Summary Pt able to Frequency of Treatment Frequency Of Treatment Twice a Day Treatment Plan Physical Therapy Treatment Plan Gait Training Recommendations To Nursing Amount of Assist Needed Standby Assistance Discharge Recommendations PT Discharge Recommendations Home with Assistance
--- NOTE | 2018-03-14 12:39 | OT.IP.TRT ---
Current Diagnoses Wedge compression fracture of T11-T12 vertebra, initial encounter for closed fracture (03/09/18) Wedge compression fracture of first lumbar vertebra, initial encounter for closed fracture (03/09/18) Occupational Therapy Treatment Note M2 OT-IP Current Condition Start: 03/10/18 12:27 Freq: Status: Active Protocol: Document 03/11/18 12:49 [facility] (Rec: 03/11/18 13:02 [facility] [id number]) Occupational Therapy Current Condition Current Condition Evaluation Date 03/11/18 Treatment Diagnosis T12 and L1 compression fracture Diagnosis Onset Date 03/09/18 Post Operative Precautions Lumbar Precautions Log Roll No Twisting Limit Bending Lifting Restriction of 10 lbs M3 OT- IP Subjective and Pain Start: 03/10/18 12:27 Freq: Status: Active Protocol: Document 03/14/18 11:25 [facility] (Rec: 03/14/18 11:39 [facility] [id number]) OT- Subjective Occupational Therapy Visit Type Type Treatment Note Visit Start Time 09:15 Visit Stop Time 10:30 Total Visit Minutes 75 Notes Pt wanting to use the toilet. Occupational Therapy Visit Comments Patient/Caregiver Goals Pt wanting to see if she could put the brace on and use the toilet on her own. OT Pain Assessment Pain When Pain Assessed At Rest Pain Present Pain Present Pain Reported M4 OT- IP ADL's Start: 03/10/18 12:27 Freq: Status: Active Protocol: Document 03/14/18 11:25 [facility] (Rec: 03/14/18 11:39 [facility] [id number]) OT ADL-Dressing General Eval Upper Body Dressing Ability Moderate Assistance Lower Body Dressing Ability Minimal Assistance Comments OT Dressing Comments Pt educated on AED for LB dressing and able to use sock aid to saurav socks and able to reach over to get brief over her feet. Pt needing assist for balance and set-up for items. MOD A to help with brace as pt does not have her contacts in and not able to see clearly. OT ADL-Toileting General Evaluation Toileting Ability Contact Guard Assistance Areas Needing Assistance Manage Clothing Comments OT Toileting Comments Pt doing better, use of grab bars and mildly unsteady at first as pt moving fast. M6 OT- IP Functional Cognition Start: 03/10/18 12:27 Freq: Status: Active Protocol: Document 03/14/18 11:25 [facility] (Rec: 03/14/18 11:39 [facility] [id number]) Cognitive Factors Limiting Selfcare Function Cognitive Ability Level of Alertness Alert Patient Orientation Name Place Situation Attention Span Ability Capable of Focused Attention Capable of Sustained Attention Ability to Follow Commands Able to Follow Multi-Step Commands Memory Description Short Term Impaired Working Impaired Safety Awareness Underestimates Need for Assistance Cognitive Tests ACL Pt scored 5.4 on the ACL which implies may live alone and work in a job with a wide margin for error. Cognitive Comments Cognitive Assessment Comments Pt doing much better today, occasional vc to repeat instructions and able to follow multiple commands today . Pt a bit impulsive and needing vc to slow down. M7 OT- IP Mobility and Balance Start: 03/10/18 12:27 Freq: Status: Active Protocol: Document 03/14/18 11:25 [facility] (Rec: 03/14/18 11:39 [facility] [id number]) OT-Transfer Assessment Sit to and From Stand Sit to and from Stand Standby Assistance Contact Guard Assistance Transfers Transfer Ability Standby Assistance Contact Guard Assistance Technique Transfer Destination Chair Toilet Devices Transfer Assistive Devices Gait Belt Front Wheeled Walker Orthotic/Prosthetic Devices or Brace: Yes M8 OT- IP Objective Assessments Start: 03/10/18 12:27 Freq: Status: Active Protocol: Document 03/11/18 12:49 [facility] (Rec: 03/11/18 13:02 [facility] [id number]) OT-Muscle Tone Assessment Muscle Tone WNL Yes M9 OT- IP Assessment and Plan Start: 03/10/18 12:27 Freq: Status: Active Protocol: Document 03/14/18 11:25 [facility] (Rec: 03/14/18 11:39 [facility] [id number]) OT Summary Assessment and Plan Summary Progress Towards Goals Progressing Toward Goals Assessment Summary Pt doing much better today, able to participate more with ADL's and looking to go home soon. Goals Days to Meet Goals 2 Frequency of Treatment Frequency Of Treatment Once a Day Treatment Plan OT Treatment Plan ADL Training Functional Cognition Training Functional Mobility Patient/Family Education Discharge Planning Other Treatment Recommendations and Next CAregiver training for brace Treatment Focus management. Discharge Recommendations OT Discharge Recommendations Home with Assistance Home Equipment Needs BSC, FWW, shower chair, LB dressing AED
--- NOTE | 2018-03-14 13:30 | PT.IPTN ---
Current Diagnoses Wedge compression fracture of T11-T12 vertebra, initial encounter for closed fracture (03/09/18) Wedge compression fracture of first lumbar vertebra, initial encounter for closed fracture (03/09/18) Physical Therapy Treatment Note M2 PT-IP Current Condition Start: 03/10/18 11:49 Freq: NEEDED Status: Active Protocol: Document 03/10/18 18:05 DLM (Rec: 03/10/18 18:30 DLM [id number]) Physical Therapy Current Condition Current Condition Evaluation Date 03/10/18 Treatment Diagnosis T12/L1 compression fx following a 3 ft fall, back pain and impaired gait Onset Date 03/09/18 Precautions Lumbar Precautions Log Roll No Twisting Limit Bending Lifting Restriction of 10 lbs Brace BOA [place] applied this visit for lumbar corset brace, pt to wear it as needed for pain control M3 PT-IP Subjective Start: 03/10/18 11:49 Freq: NEEDED Status: Active Protocol: Document 03/14/18 13:30 LJ (Rec: 03/14/18 15:46 LJ [email or web address]) Subjective Physical Therapy Visit Type Type Treatment Note Visit Start Time 13:30 Visit Stop Time 14:20 Total Visit Minutes 50 Therapy Pain Assessment Pain When Pain Assessed During Mobility Pain Present Pain Present Pain Reported Location Head Pain Behaviors Facial Grimacing M4 PT-IP Mobility and Gait Start: 03/10/18 11:49 Freq: NEEDED Status: Active Protocol: Document 03/14/18 13:30 LJ (Rec: 03/14/18 15:46 LJ [id number]) PT-Transfer Assessment Sit to and From Stand Sit to and from Stand Standby Assistance Equipment Transfer Assistive Device Gait Belt Orthotic/Prosthetic Devices or Brace: Yes Transfers Transfer Destination Chair Toilet Transfer Ability Level of Assist Standby Assistance Comments Mobility Comments Pt tried using right UE to push off chair during standing which lessened pain in back Gait Assessment Gait Gait Assistance Required: Standby Assistance Able to Maintain Weight Bearing Status Yes During Gait Assistive Devices Assistive Device Gait Belt 4 Wheeled Walker Orthotic/Prosthetic Devices or Brace: Yes Gait Deviations General Gait Pattern Decreased Stride Length Factors Limiting Gait Function Factors Limiting Gait Function Decreased Activity Tolerance Pain Comments Gait Comments Educated pt and in 4WW use. Ambulated 200' with break to practise sitting on walker seat. Pt demonstrated safety awareness but needed cues for slowing down. Improved body positioning and alignment while using 4WW. Pt needs practise with navigating 4WW to avoid bumping into objects. M5 PT-IP Objective Assessments Start: 03/10/18 11:49 Freq: NEEDED Status: Active Protocol: Document 03/10/18 18:05 DLM (Rec: 03/10/18 18:30 DLM [id number]) Orientation Orientation/Cognition Level of Alertness Alert Orientation Name Age Birthday Month Date Year Day of Week Place Situation Language Function Ability No Deficits Noted Safety Awareness Understands Safety Issues Memory Description No Deficits Noted Comments she wears contacts and has low vision when they are not worn Gross Range of Motion Upper Extremity ROM Assessment Within Functional Limits Lower Extremity ROM Assessment Within Functional Limits Impairments back pain with LE movement Strength Upper Extremity Strength Assessment Within Functional Limits Comments Strength Comments unable to MMT LE strength due to back pain and nausea, pt able to weight bear on LE's for standing and able to move them slowly in bed, back pain with LE movements Coordination Assessment Gross Coordination Gross Coordination WNL Sensation Assessment Sensation Gross Sensation WNL Muscle Tone Muscle Tone WNL Yes M6 PT-IP Treatment Start: 03/10/18 11:49 Freq: NEEDED Status: Active Protocol: Document 03/14/18 13:30 LJ (Rec: 03/14/18 15:46 LJ [id number]) Physical Therapy Treatment Education Education Provided Safety Other Treatments Other Treatment Performed Pt performed sit<>stand on toilet x 2 to determine hand placement for rails to be installed in bathroom at home. Educated pt in safe mobility with 4WW on gravel outside her home and use and placement of FWW inside home when getting into and out of the front door and using the bathroom. M7 PT-IP Assessment and Plan Start: 03/10/18 11:49 Freq: NEEDED Status: Active Protocol: Document 03/14/18 13:30 LJ (Rec: 03/14/18 15:46 LJ [id number]) PT Summary Assessment and Plan Summary Impairments Pain Activity Tolerance Progress Towards Goals Safe For Discharge Assessment Summary Pt demonstrated safety awareness during mobility and gait using 4WW. Improved posture and alignment during gait also. Recommendations To Nursing Amount of Assist Needed Standby Assistance Discharge Recommendations PT Discharge Recommendations Home with Assistance
[2018-03-14] MEDS: ALBUTEROL HFA 60 PUFF/8 GM INH INH ×2 (15:31→21:15)
--- NOTE | 2018-03-14 16:23 | RT ---
Pt. having significant airflow obstruction. States she hasn't had her symbicort for over a week. Discussed with Dr. Carmona. Will increase albut 2p to q6 scheduled and prn. Pt. doing IS at 1250 to 1500 somewhat limited due to back pain.
--- NOTE | 2018-03-14 17:35 | PM.PN.1 ---
Subjective Date Patient Seen: 03/14/18 Time Patient Seen: 08:55 Interval history: This is a 52-year-old male presenting with complaints of lower chest/upper back pain after the accident fall at home. Upon admission diagnosed with compression fracture of T12. Seen by orthopedic surgeon Dr. Jeronimo who recommended conservative management/pain control. No events since admission, patient reports accessible symptom control and getting transitioned from IV to oral pain medications. Exam Vital Signs (past 8 hours): - 03/14/18 10:57 03/14/18 12:00 03/14/18 15:40 Temperature 98 F 97.9 F Pulse Rate 60 75 Respiratory Rate 16 18 Blood Pressure 127/74 H 128/53 H Pulse Oximetry 93 95 95 03/14/18 16:17 Temperature Pulse Rate Respiratory Rate Blood Pressure Pulse Oximetry 95 Oxygen Delivery Method Room Air Oxygen Flow Rate 0 Narrative Exam Narrative: Consultation: Well-nourished well-developed male in mild distress who is alert and oriented x3 HEENT: Unremarkable exam Neck: Supple no lymphadenopathy no jugular venous distention Respiratory: Clear to auscultation bilaterally Cardiovascular: Regular rhythm rate, no murmur Gastrointestinal: Abdomen is soft, nontender, nondistended, bowel sounds present, no discernible organomegaly. Back/spine/pelvis: There is mild tenderness on palpation over the lower thoracic spine. Extremities: Warm to touch, the Skin, no rash, no skin lesions. Objective Labs Result Diagrams: 03/12/18 14:14 03/12/18 14:14 Assessment & Plan Plan: Assessment/Plan Narrative: 1. T12 compression fracture 2nd visit ground level fall> additional imaging is a Q-tip for both an L1 superior endplate compression fractures. 2. Acute lower thoracic/upper lumbar spine pain, better controlled 3. Obesity 4. Asthma, current in remission Plan: 1. Continue current symptomatic/supportive care as recommended by Dr. Jeronimo 2. Continue TLCO brace 3. Continue dose adjustments of pain medications, transition from IV to p.o. pain medications. Time Spent With Patient Time with patient: 25 - 35 minutes
[2018-03-14] MEDS: SENNOSIDES 8.6 MG TABLET 17.2 MG PO (21:14)
[2018-03-14] MEDS: SCOPOLAMINE 1 PATCH TOP (21:16)
[2018-03-15] VITALS (7 sets, daily range): BP systolic 118–136; BP diastolic 69–74; PULSE 67–96; RESP 16–18; TEMP 36.4–36.9; O2SAT 91–98
--- NOTE | 2018-03-15 | DI.CT.S_ITS ---
PROCEDURE: CT HEAD/BRAIN WO CON INDICATIONS: Fall overnight TECHNIQUE: Noncontrast 4.5 mm thick angled axial sections acquired from the foramen magnum to the vertex, with coronal and sagittal reformats. For radiation dose reduction, the following was used: automated exposure control, adjustment of mA and/or kV according to patient size. COMPARISON: None. FINDINGS: Image quality: Excellent. CSF spaces: Basal cisterns are patent. No extra-axial fluid collections. Ventricles are normal in size and shape. Brain: No midline shift. No intracranial masses or hemorrhage. Larios-white matter interface is normal. Skull and face: Calvarium and visualized facial bones are intact, without suspicious lesions. Sinuses: Visualized sinuses and mastoids are clear. IMPRESSION: No acute intracranial abnormality. Dictated by: Silverio Barba M.D. on 03/15/2018 at 9:02 Approved by: Silverio Barba M.D. on 03/15/2018 at 9:03
--- NOTE | 2018-03-15 04:38 | PC.NURSE ---
no c/o dizziness or head ache. corset brace on. pt prefers to sleep in her recliner. pt had tylenol for breakthrough pain.
[2018-03-15 06:39] LABS: Add Manual Diff / Slide Review NO; Basophils Percent Auto 0.2 % (0-2); Hematocrit 34.4 % (36-46); Lymphocytes Percent Auto 25.4 % (25-40); Mean Corpuscular Hemoglobin 31.6 PG (26-34); Mean Corpuscular Volume 90.4 fL (80-100); Neutrophils Absolute Auto 3000 /uL (3000-5900); Neutrophils Percent Auto 61.4 % (50-75); Platelet Count 231 X10^3/uL (150-400); Red Blood Cell Count 3.81 X10^6/uL (4.0-5.2); Red Cell Distribution Width 13.2 % (11.6-14.8); White Blood Cell Count 4.8 X10^3/uL (4.5-11.0)
[2018-03-15 06:48] LABS: BUN Creatinine Ratio 18.6 (6-22); Blood Urea Nitrogen 13 mg/dL (7-17); Calcium 8.8 mg/dL (8.4-10.2); Carbon Dioxide 34 mmol/L (22-32); Chloride 102 mmol/L (98-107); Estimated Glomerular Filt Rate > 60.0 mL/min (>60); Glucose 101 mg/dL (70-100); HEMOLYSIS < 15 (0-50); Magnesium 1.9 mg/dL (1.6-2.3); Potassium 3.9 mmol/L (3.4-5.1); Sodium 141 mmol/L (137-145)
[2018-03-15] MEDS: ALBUTEROL HFA 60 PUFF/8 GM INH INH (08:37)
[2018-03-15] MEDS: OXYCODONE ER 10 MG TAB 20 MG PO (08:47)
[2018-03-15] MEDS: DOCUSATE 100 MG CAPSULE PO (08:47)
[2018-03-15] MEDS: CALCITONIN,SALMON, NASAL SPRAY 1 SPRAYS NASAL (08:48)
[2018-03-15] MEDS: ENOXAPARIN 40 MG/0.4 ML SYRINGE SUBCUT (08:48)
--- NOTE | 2018-03-15 09:24 | CM.DPC ---
DCP Cont: Introduced self to patient. Had previously discussed potential short term rehab, but at this time, patient feels that she may be able to manage at home. Has the support of her spouse as well. P: Continue to assess, and offer any additional resources that patient may need at discharge. Li Santiago RN/Courseware Developer
--- NOTE | 2018-03-15 09:52 | PT.IPTN ---
Current Diagnoses Wedge compression fracture of T11-T12 vertebra, initial encounter for closed fracture (03/09/18) Wedge compression fracture of first lumbar vertebra, initial encounter for closed fracture (03/09/18) Physical Therapy Treatment Note M2 PT-IP Current Condition Start: 03/10/18 11:49 Freq: NEEDED Status: Active Protocol: Document 03/15/18 09:52 RCC (Rec: 03/15/18 10:08 [facility] [id number]) Physical Therapy Current Condition Current Condition Evaluation Date 03/10/18 Treatment Diagnosis T12/L1 compression fx following a 3 ft fall, back pain and impaired gait Onset Date 03/09/18 Precautions Lumbar Precautions Log Roll No Twisting Limit Bending Lifting Restriction of 10 lbs M3 PT-IP Subjective Start: 03/10/18 11:49 Freq: NEEDED Status: Active Protocol: Document 03/15/18 09:52 RCC (Rec: 03/15/18 10:08 [facility] [id number]) Subjective Physical Therapy Visit Type Type Treatment Note Visit Start Time 09:20 Visit Stop Time 09:52 Total Visit Minutes 32 Notes TLSO brace on during session. Number of METAL HANDLER Visits 0 Physical Therapy Visit Comments Patient Comments pt is excited to hopefully go home today. Short Term Goals go home Therapy Pain Assessment Pain When Pain Assessed At Rest Pain Present Pain Present Pain Reported Location Lower Back Intensity 2 Scale Used Numeric (1 - 10) M4 PT-IP Mobility and Gait Start: 03/10/18 11:49 Freq: NEEDED Status: Active Protocol: Document 03/15/18 09:52 RCC (Rec: 03/15/18 10:08 [facility] [id number]) PT-Transfer Assessment Sit to and From Stand Sit to and from Stand Standby Assistance Equipment Transfer Assistive Device Gait Belt Front Wheeled Walker Transfers Transfer Destination Chair Transfer Technique Stand Step Pivot Transfer Ability Level of Assist Standby Assistance Gait Assessment Gait Gait Assistance Required: Standby Assistance Distance (Feet) (feet) 500 Assistive Devices Assistive Device Gait Belt Front Wheeled Walker Gait Deviations General Gait Pattern Antalgic Decreased Stride Length Factors Limiting Gait Function Factors Limiting Gait Function Decreased Activity Tolerance Pain Poor Balance Stair Climbing Assessment Evaluation Level of Assist On Stairs Contact Guard Assistance Devices Stair Climbing Assistive Devices Left Railing Right Railing Technique/Endurance Stair Climbing Direction Ascend and Descend Stair Climbing Technique Step to Step Number of Steps Climbed 3 Query Text: PT-Balance Assessment Sitting Balance and Reactions Static Sitting Balance Ability Good Dynamic Sitting Balance Ability Good Standing Balance and Reactions Static Standing Balance Ability Good Dynamic Standing Balance Ability Good Device Used FWW M5 PT-IP Objective Assessments Start: 03/10/18 11:49 Freq: NEEDED Status: Active Protocol: Document 03/15/18 09:52 RCC (Rec: 03/15/18 10:08 [facility] [id number]) Orientation Orientation/Cognition Level of Alertness Alert M6 PT-IP Treatment Start: 03/10/18 11:49 Freq: NEEDED Status: Active Protocol: Document 03/14/18 13:30 LJ (Rec: 03/14/18 15:46 LJ [id number]) Physical Therapy Treatment Education Education Provided Safety Other Treatments Other Treatment Performed Pt performed sit<>stand on toilet x 2 to determine hand placement for rails to be installed in bathroom at home. Educated pt in safe mobility with 4WW on gravel outside her home and use and placement of FWW inside home when getting into and out of the front door and using the bathroom. M7 PT-IP Assessment and Plan Start: 03/10/18 11:49 Freq: NEEDED Status: Active Protocol: Document 03/15/18 09:52 RCC (Rec: 03/15/18 10:08 [facility] [id number]) PT Summary Assessment and Plan Summary Impairments Pain Balance Activity Tolerance Progress Towards Goals Safe For Discharge Assessment Summary Pt able to ambulate 500 ft with FWW, with increased use of walker dependence with fatigue. No c/o lightheadedness or dizziness. She used a step-to pattern on stairs, her just installed another rail making her entry B railing to enter/ exit. She has a FWW and 4WW for use at home. Pt is cleared to d/c home when medically stable. Recommend OP PT when appropriate for advancement of gait and supervision of progression of activity and exercise. Frequency of Treatment Frequency Of Treatment Twice a Day Treatment Plan Other Recommendations and Next Treatment gait, stairs Focus Recommendations To Nursing Amount of Assist Needed Standby Assistance Discharge Recommendations PT Discharge Recommendations Home with Assistance Other Discharge Recommendations OP PT referral- gait, balance
--- NOTE | 2018-03-15 12:00 | PM.PN.1 ---
Subjective Date Patient Seen: 03/15/18 Time Patient Seen: 12:00 Interval history: 52-year-old female complaining of back pain. She and her are working on their property with building new house while having a small cabin transported and delivered to the property. They have been excavating around this for the foundation, and she fell over backwards down into the excavated ditch approximately 5 ft landing on her back on 03/09/2018. She had immediate pain across the back and had to be transported to the emergency room. She was admitted for pain control after being found to have 2 compression fractures in her back. The pain was horrible for the 1st few days but it is getting a little bit better now. Her pain is much better today. She has been up and ambulating in the carter many times today. She has practice stairs. She would like to go home today. Denies any bowel or bladder changes. Exam Vital Signs (past 8 hours): - 03/15/18 05:25 03/15/18 07:45 03/15/18 08:42 Temperature 97.5 F L 97.7 F Pulse Rate 72 67 76 Respiratory Rate 17 16 16 Blood Pressure 123/69 H 118/70 Pulse Oximetry 92 96 98 Oxygen Delivery Method Room Air Oxygen Flow Rate 0 Narrative Exam Narrative: Patient is sitting at bedside chair in no acute distress. She is alert and oriented x3. She is able to actively dorsiflex and plantar flex, EHL with 5/5 strength. sensation intact to light touch throughout bilateral lower extremities. Calves are soft, compressible, nontender bilaterally. Pulses are symmetrical. Objective Labs Result Diagrams: 03/15/18 06:15 03/15/18 06:15 Labs: Laboratory Results - last 24 hr 03/15/18 03/15/18 06:15 06:15 WBC 4.8 RBC 3.81 L Hgb 12.0 Hct 34.4 L MCV 90.4 MCH 31.6 MCHC 35.0 RDW 13.2 Plt Count 231 Neut % (Auto) 61.4 Lymph % (Auto) 25.4 [place] % (Auto) 8.0 Eos % (Auto) 5.0 H Baso % (Auto) 0.2 Neut # (Auto) 3000 Sodium 141 Potassium 3.9 Chloride 102 Carbon Dioxide 34 H BUN 13 Creatinine 0.70 Estimated GFR > 60.0 BUN/Creatinine Ratio 18.6 Glucose 101 H Calcium 8.8 Magnesium 1.9 Assessment & Plan (1) Compression fracture of T12 vertebra: Problem details: 52 year old female with L1 and T12 compression fractures approximately 10% height loss. neurovascularly intact. with uncontrolled back pain. recommended pain control, intranasal calcitonin, back bracing as needed-- will start trying lumbar corset if this is not adequate for patient may need TLSO brace. recommend vitamin-D and calcium ( 1200 mg calcium daily and 2-3000 international units of vitamin D) recommend consideration for outpatient osteopenia workup if warranted, however patient's mechanism of injury is certainly significant to result in these fractures. Current visit: Yes Status: Acute (2) Compression fracture of first lumbar vertebra: Problem details: 52 year old female with L1 and T12 compression fractures approximately 10% height loss. neurovascularly intact. with uncontrolled back pain. recommended pain control, intranasal calcitonin, back bracing as needed-- will start trying lumbar corset if this is not adequate for patient may need TLSO brace. recommend vitamin-D and calcium ( 1200 mg calcium daily and 2-3000 international units of vitamin D) recommend consideration for outpatient osteopenia workup if warranted, however patient's mechanism of injury is certainly significant calf to result in these fractures. Current visit: Yes Status: Acute Plan: Assessment/Plan Narrative: Patient will continue current pain management. Continue wearing her brace. She will likely be able to discharge home today. Follow up in our office in 1 week.
--- NOTE | 2018-03-15 15:42 | PC.NURSE ---
Addendum entered by Lorna Santana R.N. 03/15/18 18:47: PT able to have BM. Dc'd via WC with paperwork and belongings. Original Note: shift overview/DC 1530 pt resting in recliner. Alert and oriented and awaiting Md to complete DC paperwork and give RXs. Denies any needs. supportive present at chair side.
--- NOTE | 2018-03-15 15:46 | PT.IPTN ---
Current Diagnoses Wedge compression fracture of T11-T12 vertebra, initial encounter for closed fracture (03/09/18) Wedge compression fracture of first lumbar vertebra, initial encounter for closed fracture (03/09/18) Physical Therapy Treatment Note M2 PT-IP Current Condition Start: 03/10/18 11:49 Freq: NEEDED Status: Active Protocol: Document 03/15/18 09:52 RCC (Rec: 03/15/18 10:08 [facility] [id number]) Physical Therapy Current Condition Current Condition Evaluation Date 03/10/18 Treatment Diagnosis T12/L1 compression fx following a 3 ft fall, back pain and impaired gait Onset Date 03/09/18 Precautions Lumbar Precautions Log Roll No Twisting Limit Bending Lifting Restriction of 10 lbs M3 PT-IP Subjective Start: 03/10/18 11:49 Freq: NEEDED Status: Active Protocol: Document 03/15/18 15:37 GGD (Rec: 03/15/18 15:46 GGD [id number]) Subjective Physical Therapy Visit Type Type Patient Refusal Notes Pt states she is tired from showering this afternoon. She would like to rest before D/C home. Frequency of Treatment Frequency Of Treatment Twice a Day Treatment Plan Other Recommendations and Next Treatment gait, stairs Focus Recommendations To Nursing Amount of Assist Needed Standby Assistance Discharge Recommendations PT Discharge Recommendations Home with Assistance Other Discharge Recommendations OP PT referral- gait, balance
--- NOTE | 2018-03-15 16:01 | PM.DS.1 ---
History of Present Illness Date Patient Seen: 03/15/18 Time Patient Seen: 14:00 Chief complaint: Low back pain, fell 3ft Narrative: This is a 52-year-old F presenting with complaints of lower chest/upper back pain after the accidental fall at home. Upon admission diagnosed with compression fracture of T12. Seen by orthopedic surgeon Dr. Jeronimo who recommended conservative management/pain control. No events since admission, patient reports acceptable symptom control on oral pain medications, she is out of bed and ambulating with a walker. Discharge Providers Date of admission: 03/09/18 20:49 Consults: 03/09/18 21:01 Consult to Occupational Therapy Evaluate & Treat Comment: Physician Instructions: Evaluate and treat Consult to Physical Therapy Evaluate & Treat Comment: Physician Instructions: Evaluate and Treat 03/10/18 13:24 Consult to Physician Routine Comment: Consulting Provider: Esme Romero Reason for consultation: compression fx spine Has provider been notified: Yes 03/14/18 09:15 Consult to Respiratory Therapy Evaluate & Treat Comment: Physician Instructions: Evaluate and treat Discharge provider: Caitlyn Felix MD Summary Discharge Diagnosis: 1. Acute back pain: Secondary to the ground level fall at home. Admission imaging study with evidence of T12 and L1 superior endplate compression fractures. Comments with who recommended conservative management. Currently doing well on oral pain medications, lumbar brace. She is out of bed and ambulating with a walker, 2. Obesity/plan suspected obstructive sleep apnea: Recommend outpatient sleep study per PCP referral. 3. Asthma: Appears to be stable remission: Patient to continue outpatient breathing treatment with albuterol on as-needed basis. Hospital Course: This is a 52-year-old female presenting with acute back pain after a ground level fall at home. Imaging studies conducted with evidence of T12 and L1 superior endplate compression fracture less than 1/3 of vertebral height. Co-management with who recommended conservative/symptomatic care . At the time of discharge with good symptom control on oral pain medications. The patient out of bed and ambulating with a walker. Status at Discharge Functional status at discharge: uses cane/walker Overall status at discharge: patient is progressing back to baseline Time Spent with Patient Greater than 30 minutes Exam Vital Signs (past 8 hours): - 03/15/18 08:42 03/15/18 12:30 03/15/18 13:28 Temperature 97.8 F Pulse Rate 76 72 Respiratory Rate 16 18 Blood Pressure 124/74 H Pulse Oximetry 98 93 96 Oxygen Delivery Method Room Air Oxygen Flow Rate 0 Narrative Exam Narrative: Constitutional: well-developed , obese F in mild distress who is alert and oriented x3 HEENT: Unremarkable exam Neck: Supple no lymphadenopathy no jugular venous distention Respiratory: Clear to auscultation bilaterally Cardiovascular: Regular rhythm rate, no murmur Gastrointestinal: Abdomen is soft, nontender, nondistended, bowel sounds present, no discernible organomegaly. Back/spine/pelvis: There is mild tenderness on palpation over the lower thoracic spine. Extremities: Warm to touch, the Skin, no rash, no skin lesions. Objective Imaging CT scan - chest: Radiologist's impression: IMPRESSION: #1. Acute T12 and L1 superior endplate compression fractures. Mild retropulsion of the T12 posterior fracture fragment results in mild spinal canal stenosis at that level. #2. Chronic-appearing bilateral L5 pars defects resulting in 4 mm of anterolisthesis of L5 on S1. Findings discussed with the ordering provider Dr. Long Ahumada at 6:45 PM on 03/09/[address] Ruiz. Dictated by: Spencer Ruiz M.D. on 03/09/2018 at 18:45 Approved by: Spencer Ruiz M.D. on 03/09/2018 at 18:55 Labs Result Diagrams: 03/15/18 06:15 03/15/18 06:15 Labs: Laboratory Results - last 24 hr 03/15/18 03/15/18 06:15 06:15 WBC 4.8 RBC 3.81 L Hgb 12.0 Hct 34.4 L MCV 90.4 MCH 31.6 MCHC 35.0 RDW 13.2 Plt Count 231 Neut % (Auto) 61.4 Lymph % (Auto) 25.4 [place] % (Auto) 8.0 Eos % (Auto) 5.0 H Baso % (Auto) 0.2 Neut # (Auto) 3000 Sodium 141 Potassium 3.9 Chloride 102 Carbon Dioxide 34 H BUN 13 Creatinine 0.70 Estimated GFR > 60.0 BUN/Creatinine Ratio 18.6 Glucose 101 H Calcium 8.8 Magnesium 1.9 Discharge Plan Discharge Plan Patient Disposition: Home Provider Discharge Instructions Diet: Low-fat Activity: advance as tolerated Discharge Data Attending Provider: Henry Macias Admit Date/Time: 03/09/18 20:49
[2018-03-15] MEDS: BISACODYL 10 MG SUPP PR (17:31)
== END 2018-03-15 18:47 | disposition home or self-care (01) | DRG 552 ==
LOC: ED 19:34 → AC 19:57
PROVIDERS: Hospitalist; Internal Medicine; Admitting Provider Internal Medicine; Emergency Provider Emergency Medicine; Visit Provider Internal Medicine
DX: S22.080A Wedge compression fracture of T11-T12 vertebra, initial encounter for closed fracture (principal); S32.010A Wedge compression fracture of first lumbar vertebra, initial encounter for closed fracture; Z68.41 Body mass index [BMI] 40.0-44.9, adult; W17.89XA Other fall from one level to another, initial encounter; Y92.008 Other place in unspecified non-institutional (private) residence as the place of occurrence of the external cause; G89.11 Acute pain due to trauma; R11.2 Nausea with vomiting, unspecified; J45.909 Unspecified asthma, uncomplicated; R09.02 Hypoxemia; M43.17 Spondylolisthesis, lumbosacral region; K59.00 Constipation, unspecified; E66.9 Obesity, unspecified; G47.33 Obstructive sleep apnea (adult) (pediatric)
CPT/HCPCS: 36415; 70450; 72100; 72131; 80048; 80053; 80076; 82962; 83735; 85025; 94150; 94640; 94760; 94762; 96374; 96376; 97110; 97116; 97127; 97163; 97166; 97530; 97535; 99283; 99284; G0378; C9113; J0780; J1170; J1650; J2060; J2405

== ENCOUNTER → 2018-05-03 10:49 | Outpatient (CLI) | payer BC, SELFPAY ==
--- NOTE | 2018-05-03 | DI.RAD.S_ITS ---
PROCEDURE: XR CERVICAL SPINE 2V OR 3V INDICATIONS: PAIN TECHNIQUE: 4 views of the cervical spine were acquired. COMPARISON: None. FINDINGS: Bones: No fractures or dislocations to the C6 level. There is straightening of the cervical lordosis with minimal anterolisthesis at C4-C5. The lateral masses of C1 appear intact on the odontoid view. No suspicious bony lesions. Soft tissues: No prevertebral soft tissue swelling. IMPRESSION: 1. No fracture or dislocation to the C6 level. Dictated by: Michi Hendrickson M.D. on 05/03/2018 at 12:26 Approved by: Michi Hendrickson M.D. on 05/03/2018 at 12:31
== END ==
PROVIDERS: PCP Orthopaedic Surgery; Visit Provider Family Medicine
DX: M54.2 Cervicalgia (principal)
CPT/HCPCS: 72040

== ENCOUNTER → 2018-11-17 10:43 | Outpatient (CLI) | payer BC, SELFPAY ==
--- NOTE | 2018-11-17 | DI.RAD.S_ITS ---
PROCEDURE: XR CHEST 2V INDICATIONS: Mild persistent asthma, uncomplicated TECHNIQUE: 2 views of the chest were acquired. COMPARISON: None. FINDINGS: Surgical changes and devices: None. Lungs and pleura: No pleural effusion or pneumothorax. There is increased prominence of the pulmonary vasculature. There is mild bilateral bronchial wall thickening. There are bilateral perihilar linear opacities. No focal pulmonary consolidations are identified. Mediastinum: Mediastinal contours are normal. Heart size is normal. Bones and chest wall: Anterior vertebral body compression deformities of the mid and lower thoracic spine are similar to slightly worsened from comparison exam of 05/21/18. IMPRESSION: 1. Mild bilateral bronchial wall thickening with bilateral perihilar linear opacities most consistent with atelectasis; these findings are nonspecific but can be seen with viral respiratory tract infections and obstructive lung diseases such as asthma. No focal pulmonary consolidations consistent with pneumonia. 2. Anterior vertebral body compression deformities of the mid and lower thoracic spine are similar to slightly worsened from comparison exam of 05/21/18; correlation with point tenderness recommended to exclude acute or worsening fracture. Dictated by: Spencer Ruiz M.D. on 11/17/2018 at 11:47 Approved by: Spencer Ruiz M.D. on 11/17/2018 at 11:54
== END ==
PROVIDERS: PCP Family Medicine; Visit Provider Family Medicine
DX: J45.30 Mild persistent asthma, uncomplicated (principal)
CPT/HCPCS: 71046

== ENCOUNTER → 2018-11-19 08:43 | Outpatient (CLI) | payer BC, SELFPAY ==
--- NOTE | 2018-11-21 14:28 | PM.PFT.1 ---
Pulmonary Function Test Referral & Results Date Patient Seen: 11/19/18 Requesting provider: Esme Chavez Results: The spirometry demonstrates an FVC of 2.71 L which is 84% of predicted. The FEV1 was measured at 1.99 L which is 79% of predicted. The FEV1/FVC ratio was 73 which is 92% of predicted. Following the administration of bronchodilator there was no significant change. Lung volumes show an SVC of 2.92 L which is 98% of predicted. The diffusing capacity was measured at 29.1 to which is 135% of predicted. The maximum voluntary ventilation was reduced Interpretation: This study demonstrates mild obstructive lung disease based our reduction in FEV1 without evidence of significant benefit following bronchodilator administration Otherwise lung volumes and diffusing capacity are normal
== END ==
PROVIDERS: PCP Family Medicine; Visit Provider Family Medicine
DX: J45.30 Mild persistent asthma, uncomplicated (principal)
CPT/HCPCS: 94060; 94726; 94729

== ENCOUNTER → 2020-08-03 18:38 | Outpatient (CLI) | payer BC, SELFPAY ==
--- NOTE | 2020-08-03 18:40 | DI.MRI.S_ITS ---
PROCEDURE: MR HEAD/BRAIN WO CON INDICATIONS: New daily persistent headache (NDPH) TECHNIQUE: Non-contrast axial T1 spin echo, axial T2 fast spin echo, sagittal and axial FLAIR, coronal T2 fast spin echo, axial gradient echo, axial diffusion and ADC through the brain. COMPARISON: None. FINDINGS: Image quality: Excellent. CSF spaces: Ventricles appear symmetric in size and shape. Basal cisterns are patent. No extra-axial fluid collections. Brain: No intracranial bleeds or mass effects. There is cerebral volume loss for age. There are periventricular and deep white matter chronic small vessel ischemic changes. Brainstem appears normal. Diffusion-weighted images show no acute ischemic insults. No chronic ischemic insults. Normal intravascular flow voids are present. Skull and face: Calvarial bone marrow is normal in signal. Orbits are normal. Sinuses: Sinuses and mastoids are clear. IMPRESSION: No evidence of acute ischemia. No acute intracranial signal abnormality. Dictated by: Joaquin Landeros M.D. on 08/04/2020 at 9:06 Approved by: Joaquin Landeros M.D. on 08/04/2020 at 9:32
== END ==
PROVIDERS: PCP Family Medicine; Referring Provider Family Medicine; Visit Provider Family Medicine
DX: G44.52 New daily persistent headache (NDPH) (principal); Z84.89 Family history of other specified conditions
CPT/HCPCS: 70551

== ENCOUNTER → 2020-10-27 10:06 | Outpatient (CLI) | payer BC, SELFPAY ==
[2020-10-27 11:18] LABS: Alanine Aminotransferase 26 IU/L (<35); Albumin 4.1 g/dL (3.5-5.0); Albumin Globulin Ratio 1.4 (1.0-2.8); Alkaline Phosphatase 98 U/L (38-126); Aspartate Aminotransferase 25 IU/L (14-36); BUN Creatinine Ratio 13.8 (6-22); Bilirubin Total 0.3 mg/dL (0.2-1.3); Blood Urea Nitrogen 11 mg/dL (7-17); Calcium 9.7 mg/dL (8.4-10.2); Carbon Dioxide 30 mmol/L (22-32); Chloride 101 mmol/L (98-107); Cholesterol 209 mg/dL (140-199); Estimated Glomerular Filt Rate > 60.0 mL/min (>60); Globulin 2.9 g/dL (1.7-4.1); Glucose 103 mg/dL (70-100); HDL Cholesterol 68 mg/dL (40-60); HEMOLYSIS < 15 (0-50); LDL Cholesterol Calculated 126 mg/dL (<100); Potassium 4.5 mmol/L (3.4-5.1); Sodium 138 mmol/L (137-145); Triglycerides 75 mg/dL (35-150)
== END ==
PROVIDERS: PCP Family Medicine; Referring Provider Registered Nurse; Visit Provider Registered Nurse
DX: I10 Essential (primary) hypertension (principal); Z82.49 Family history of ischemic heart disease and other diseases of the circulatory system
CPT/HCPCS: 36415; 80053; 80061

== ENCOUNTER 2020-12-31 13:22 | Emergency (ER) | payer BC, SELFPAY ==
[2020-12-31 13:37] VITALS: BP 138/73; PULSE 76; RESP 16; TEMP 36.6; O2SAT 99; BMI 39.1
--- NOTE | 2020-12-31 14:09 | ED.ABDPAIN ---
HPI - Abdominal Pain General Chief Complaint: Abdominal Pain Stated Complaint: LOW BACK PAIN, CRAMPING IN PELVIS Time Seen by Provider: 12/31/20 13:57 Source: patient Mode of arrival: Ambulatory Limitations: no limitations History of Present Illness HPI narrative: Patient is a 55-year-old female who presents with mid lumbar pain that is worse when she lies flat it is an effort couple of weeks she notices it more at night time. Over the last 2 days has started radiating bilaterally to her lower abdomen and cramping. She has had increased urination but not dysuria. She denies any fever or chills. She has no real abdominal pain she definitely says is in her lower back. She denies any injury. No radiation to her legs. No numbness tingling or weakness. She was initially seen at the walk-in clinic her urine was tested there and negative. She was sent to the ED for further evaluation. She is taking Tylenol at night to help with pain she is not needing or wanting anything for pain now. MD complaint: abdominal pain Onset (ago): day(s) (2) Pain Consistency: constant Quality: cramping Related Data Home Medications Medication Instructions Recorded Confirmed albuterol sulfate 1 puff INHALATION Q4-6H PRN 03/09/18 12/31/20 albuterol sulfate 90 mcg/actuation 1 inh INHALATION ONCE 10/27/20 12/31/20 aerosol inhaler amlodipine 2.5 mg tablet 2.5 mg PO DAILY 10/27/20 12/31/20 budesonide-formoterol HFA 80 2 puff INHALATION BID 10/27/20 12/31/20 mcg-4.5 mcg/actuation aerosol inhaler hydrochlorothiazide 12.5 mg tablet 12.5 mg PO DAILY 10/27/20 12/31/20 Previous Rx's Medication Instructions Recorded acetaminophen 650 mg PO Q4H PRN #30 tab 03/15/18 hydroxyzine HCl 50 mg tablet 50 mg PO BEDTIME PRN 30 Days #30 11/17/20 tab Allergies Allergy/AdvReac Type Severity Reaction Status Date / Time No Known Drug Allergies Allergy Verified 12/31/20 14:19 Review of Systems Review of Systems Narrative: GENERAL: Denies chills, fatigue, malaise, fever, sweats, travel HEENT: Denies sinus pain, ear pain, sore throat, difficulty swallowing, neck pain RESPIRATORY: Denies dyspnea, cough, wheezing, hemoptysis, sputum. CARDIOVASCULAR: Denies chest pain, palpitations, orthopnea, edema GASTROINTESTINAL: cramping see HPI : Denies dysuria, frequency, incontinence, hematuria, urinary retention, flank pain. MUSCULOSKELETAL: Back pain see HPI SKIN: No rash, no erythema, no pruritus NEUROLOGIC: Denies weakness, dizziness, headache, numbness, change in speech, confusion PSYCHIATRIC: No concerning psychosocial issues. 12 point review of systems is negative except for those stated above and HPI Patient History Medical History Asthma Cervical cancer screening Closed lumbar vertebral fracture Compression fracture of T12 vertebra Intractable back pain Social History household members: spouse Smoking Status: Never smoker alcohol intake: never Smoking Status: Never smoker Substance Use Type: does not use Exam Initial Vital Signs Initial Vital Signs: Vital Signs Temperature 97.9 F 12/31/20 13:37 Pulse Rate 76 12/31/20 13:37 Respiratory Rate 16 12/31/20 13:37 Blood Pressure 138/73 12/31/20 13:37 Pulse Oximetry 99 12/31/20 13:37 GENERAL: Alert pleasant 55-year-old female and in no acute distress. HEENT: Head atraumatic,EOMI, pupils reactive, face symmetric, moist mucous membranes CARDIOVASCULAR: Regular rate and rhythm without murmurs, rubs or gallops. RESPIRATORY: Breath sounds equal bilaterally, no wheezes rales or rhonchi. ABDOMEN: Soft, nontender. Normoactive bowel sounds all 4 quadrants. No guarding or rebound. BACK: Midline tenderness ill for not excruciating no step-off : No CVA tenderness EXTREMITIES: Normal range of motion, no clubbing or edema. Neurovascularly intact NEUROLOGICAL: Alert and oriented x4.Normal gait and speech. SKIN: Warm, dry, no laceration, no petechiae, no rashes or lesions. Course Orders Ordered: ED Orders 12/31/20 14:25 Complete Blood Count AUTO DIFF Stat Comprehensive Metabolic Panel Stat Lipase Stat 12/31/20 14:50 CT abdomen pelvis wo con Stat Vital Signs Vital signs: Vital Signs - 8 hr 12/31/20 13:37 Temperature 97.9 F Pulse Rate 76 Respiratory Rate 16 Blood Pressure 138/73 Pulse Oximetry 99 MDM - Abdominal Pain Lab Data Attestation: I reviewed the patient's lab results. Result diagrams: 12/31/20 14:25 12/31/20 14:25 Labs: Lab Results 12/31/20 12/31/20 Range/Units 14:25 14:25 WBC 6.2 (4.5-11.0) X10^3/uL RBC 5.09 (4.0-5.2) X10^6/uL Hgb 15.6 (12.0-16.0) g/dL Hct 47.0 H (36-46) % MCV 92.2 (80-100) fL MCH 30.7 (26-34) PG MCHC 33.3 (30-36) % RDW 13.5 (11.6-14.8) % Plt Count 262 (150-400) X10^3/uL Neut % (Auto) 62.8 (50-75) % Lymph % (Auto) 27.3 (25-40) % [place] % (Auto) 6.2 (3-14) % Eos % (Auto) 2.8 (2-4) % Baso % (Auto) 0.9 (0-2) % Neut # (Auto) 3900 (1883-5490) /uL Lymph # (Auto) 1700 (6672-7941) /uL [place] # (Auto) 400 (0-900) /uL Eos # (Auto) 200 (0-450) /uL Baso # (Auto) 100 (0-100) /uL Sodium 139 (137-145) mmol/L Potassium 4.0 (3.4-5.1) mmol/L Chloride 104 (98-107) mmol/L Carbon Dioxide 28 (22-32) mmol/L BUN 12 (7-17) mg/dL Creatinine 0.72 (0.52-1.04) mg/dL Estimated GFR > 60.0 (>60) mL/min BUN/Creatinine Ratio 16.7 (6-22) Glucose 86 (70-100) mg/dL Calcium 10.0 (8.4-10.2) mg/dL Total Bilirubin 0.6 (0.2-1.3) mg/dL AST 38 H (14-36) IU/L ALT 40 H (<35) IU/L Alkaline Phosphatase 111 (38-126) U/L Total Protein 8.2 (6.3-8.2) g/dL Albumin 4.4 (3.5-5.0) g/dL Globulin 3.8 (1.7-4.1) g/dL Albumin/Globulin Ratio 1.2 (1.0-2.8) Lipase 131 (23-300) U/L Point of care testing: Urine Dip Bedside Urine Glucose Negative Bedside Urine Bilirubin - Negative Bedside Urine Ketone - Negative Urine Specific [place] 1.015 Bedside Urine Occult Blood - Negative Bedside Urine pH 6.0 Bedside Urine Protein - Negative Bedside Urine Urobilinogen - Negative Bedside Urine Nitrite - Negative Bedside Urine Leukocytes - Negative Esterase Imaging Data CT scan - abdomen/pelvis: Radiologist's Impression: PROCEDURE: CT ABDOMEN PELVIS WO CON INDICATIONS: bilateral flank pain TECHNIQUE: Axial sections were acquired from the lung bases to the pubic symphysis. Coronal and sagittal reformats were performed. For radiation dose reduction, the following was used: automated exposure control, adjustment of mA and/or kV according to patient size. COMPARISON:None. FINDINGS: Image quality: Excellent. Lung bases: Unremarkable. Heart: No significant findings. URINARY: Right Kidney: No stones or hydronephrosis. Right Ureter: No hydroureter. Left Kidney: No stones or hydronephrosis. Left Ureter: No hydroureter. Bladder: Normal wall thickness. No stones. ABDOMEN: Liver: Unremarkable. Gallbladder: Unremarkable. Biliary ducts: Unremarkable. Pancreas: Unremarkable. Spleen: Unremarkable. Adrenal Glands: Unremarkable. Stomach and Bowel: Stomach, small bowel loops, and colon are unremarkable. There is moderate colonic obstipation, right greater than left. Peritoneum: No abnormal intraperitoneal fluid. No free air. Ventral Wall: No hernia. Abdominal Nodes: No enlarged retroperitoneal or mesenteric lymph nodes. Vessels: Aorta and inferior vena cava are normal in size. PELVIS: Pelvic Organs: Unremarkable. Pelvic Nodes: Unremarkable. Miscellaneous: No inguinal hernias are seen. Bones: Unremarkable. IMPRESSION: No urinary tract stone or inflammation is seen. No hydronephrosis is found. Note is made of moderate colonic obstipation, right greater than left. Dictated by: Alvaro Crowe M.D. on 12/31/2020 at 15:09 MDM Narrative Medical decision making narrative: Patient is having some mid line tenderness but is radiating around to her abdomen bilaterally no real abdominal pain but some mild cramping. Blood work is overall reassuring CT is unremarkable no sign of infection at this time recommend pain control with Tylenol or ibuprofen at home and return as needed Discharge Plan Departure Patient Disposition: Home Clinical Impression: Abdominal pain Instructions: DI for Abdominal Pain-Adult Activity Restrictions/Additional Instructions: *You have been diagnosed with abdominal pain *What to do: At this time unknown what is causing your pain and discomfort at this time. Blood work and CT do not show any abnormality. *Continue to take medications as directed Tylenol 650 mg every 4-6 hours if needed for [id number] pain Motrin 600 mg every 6-8 hours if needed for [id number] pain *Follow up with your primary care provider in 2-3 days *Return to ER if you should have increasing pain, fever, weakness numbness tingling or any new, worsening or concerning symptoms Prescriptions: No Action budesonide-formoterol [Symbicort] 80-4.5 mcg/actuation HFA aerosol inhaler 2 puff inhalation BID RF: 0 albuterol sulfate 90 mcg/actuation HFA aerosol inhaler 1 inh inhalation ONCE RF: 0 amlodipine 2.5 mg tablet 2.5 mg PO DAILY RF: 0 hydrochlorothiazide 12.5 mg tablet 12.5 mg PO DAILY RF: 0 hydroxyzine HCl 50 mg tablet 50 mg PO BEDTIME PRN (Reason: insomnia; anxiety) 30 Days Qty: 30 RF: 1 albuterol sulfate 90 mcg/actuation Hfa Aerosol Inhaler 1 puff INHALATION Q4-6H PRN (Reason: Shortness Of Breath Or Wheezing) RF: 0 acetaminophen 325 mg Tablet 650 mg PO Q4H PRN (Reason: As Needed For Fever/Mild Pain) Qty: 30 RF: 0 Referrals: Esme Chavez MD [Primary Care Provider] -
--- NOTE | 2020-12-31 14:50 | DI.CT.S_ITS ---
PROCEDURE: CT ABDOMEN PELVIS WO CON INDICATIONS: bilateral flank pain TECHNIQUE: Axial sections were acquired from the lung bases to the pubic symphysis. Coronal and sagittal reformats were performed. For radiation dose reduction, the following was used: automated exposure control, adjustment of mA and/or kV according to patient size. COMPARISON:None. FINDINGS: Image quality: Excellent. Lung bases: Unremarkable. Heart: No significant findings. URINARY: Right Kidney: No stones or hydronephrosis. Right Ureter: No hydroureter. Left Kidney: No stones or hydronephrosis. Left Ureter: No hydroureter. Bladder: Normal wall thickness. No stones. ABDOMEN: Liver: Unremarkable. Gallbladder: Unremarkable. Biliary ducts: Unremarkable. Pancreas: Unremarkable. Spleen: Unremarkable. Adrenal Glands: Unremarkable. Stomach and Bowel: Stomach, small bowel loops, and colon are unremarkable. There is moderate colonic obstipation, right greater than left. Peritoneum: No abnormal intraperitoneal fluid. No free air. Ventral Wall: No hernia. Abdominal Nodes: No enlarged retroperitoneal or mesenteric lymph nodes. Vessels: Aorta and inferior vena cava are normal in size. PELVIS: Pelvic Organs: Unremarkable. Pelvic Nodes: Unremarkable. Miscellaneous: No inguinal hernias are seen. Bones: Unremarkable. IMPRESSION: No urinary tract stone or inflammation is seen. No hydronephrosis is found. Note is made of moderate colonic obstipation, right greater than left. Dictated by: Alvaro Crowe M.D. on 12/31/2020 at 15:09 Approved by: Alvaro Crowe M.D. on 12/31/2020 at 15:11
[2020-12-31 15:56] LABS: Add Manual Diff / Slide Review NO; Basophils Absolute Auto 100 /uL (0-100); Basophils Percent Auto 0.9 % (0-2); Eosinophils Absolute Auto 200 /uL (0-450); Eosinophils Percent Auto 2.8 % (2-4); Hemoglobin 15.6 g/dL (12.0-16.0); Lymphocytes Absolute Auto 1700 /uL (1100-4500); Lymphocytes Percent Auto 27.3 % (25-40); Mean Corpuscular HGB Conc 33.3 % (30-36); Mean Corpuscular Hemoglobin 30.7 PG (26-34); Mean Corpuscular Volume 92.2 fL (80-100); Monocytes Absolute Auto 400 /uL (0-900); Monocytes Percent Auto 6.2 % (3-14); Neutrophils Absolute Auto 3900 /uL (1500-7000); Neutrophils Percent Auto 62.8 % (50-75); Platelet Count 262 X10^3/uL (150-400); Red Blood Cell Count 5.09 X10^6/uL (4.0-5.2); Red Cell Distribution Width 13.5 % (11.6-14.8); White Blood Cell Count 6.2 X10^3/uL (4.5-11.0)
[2020-12-31 16:27] LABS: Alanine Aminotransferase 40 IU/L (<35); Albumin 4.4 g/dL (3.5-5.0); Albumin Globulin Ratio 1.2 (1.0-2.8); Alkaline Phosphatase 111 U/L (38-126); Aspartate Aminotransferase 38 IU/L (14-36); BUN Creatinine Ratio 16.7 (6-22); Bilirubin Total 0.6 mg/dL (0.2-1.3); Blood Urea Nitrogen 12 mg/dL (7-17); Carbon Dioxide 28 mmol/L (22-32); Chloride 104 mmol/L (98-107); Estimated Glomerular Filt Rate > 60.0 mL/min (>60); Globulin 3.8 g/dL (1.7-4.1); Glucose 86 mg/dL (70-100); HEMOLYSIS 23 (0-50); Lipase 131 U/L (23-300); Sodium 139 mmol/L (137-145); Total Protein 8.2 g/dL (6.3-8.2)
[2020-12-31 16:58] VITALS: BP 109/56; PULSE 65; RESP 18; O2SAT 97
== END 2020-12-31 16:59 | disposition home or self-care (01) ==
PROVIDERS: Emergency Provider Emergency Medicine; PCP Family Medicine
DX: R10.30 Lower abdominal pain, unspecified (principal); M54.5 Low back pain
CPT/HCPCS: 74176; 80053; 81003; 83690; 85025; 99281; 99284

== ENCOUNTER → 2021-09-27 16:34 | Outpatient (CLI) | payer BC, SELFPAY ==
--- NOTE | 2021-09-27 16:36 | DI.MRI.S_ITS ---
PROCEDURE: MR PELVIS WO/W CON INDICATIONS: Intra-abdominal and pelvic swelling, mass and lump TECHNIQUE: Coronal HASTE, sagittal breath-hold T2 FSE; axial T1 FSE with and without fat saturation through the pelvis. Optional long- and short-axis uterine nonbreath-hold T2 FSE through the uterus. Sagittal or axial dynamic VIBE during administration of contrast. Post-contrast axial or coronal VIBE/2-D FLASH with fat saturation from the iliac crests to the symphysis. Optional diffusion weighted imaging and ADC may be performed. COMPARISON: [facility], RG, US PELVIC COMPLETE, 09/20/2021, 16:00. [facility], CT, CT ABDOMEN PELVIS WO CON, 12/31/2020, 14:34. FINDINGS: Image quality: Excellent. Uterus: Uterus is retroverted and measures 6.9 cm, (3/13). Anterior lower uterine segment subserosal/intramural mass measuring 2.3 x 2.2 x 1.7 cm, (3/10 and 5/10). The lesion demonstrates T2 hypointense signal, T1 isointense signal, no internal fat, mild homogeneous enhancement, and mild restricted diffusion. There is mild contour abnormality associated with the lesion. The lesion can be seen on the remote CT from 2018. This is most consistent with a benign fibroid. Endometrium is normal in thickness measuring 0.2 cm or less. Junctional zone is normal in thickness at 12 mm or less. Adnexa: Both ovaries are normal in size, without suspicious cystic or solid lesions. Urinary system: Bladder wall is normal in thickness. Distal ureters are non distended. Urethra appears normal in morphology. Nodes and vessels: No pelvic or inguinal adenopathy by size criteria. Iliac vessels are normal in size. Bowel and peritoneum: No pathologic free pelvic fluid. Inferior colon and small bowel loops are normal in caliber. The appendix is not dilated. Soft tissues: No inguinal hernias. No findings of pelvic floor incompetence in the absence of provocation. Bones: Marrow demonstrates normal overall signal. Grade 1 anterolisthesis of L5 on L4. IMPRESSION: 1. Anterior lower uterine segment mass measuring 2.3 cm is most consistent with a benign fibroadenoma. 2. Normal endometrial thickness measuring less than 0.2 cm. 3. No ovarian mass or cystic lesion. No free fluid. Dictated by: Sean Zapata M.D. on 09/29/2021 at 8:20 Approved by: Sean Zapata M.D. on 09/29/2021 at 8:32
== END ==
PROVIDERS: PCP Family Medicine; Referring Provider Family Medicine; Visit Provider Family Medicine
DX: R19.00 Intra-abdominal and pelvic swelling, mass and lump, unspecified site (principal)
CPT/HCPCS: 72197; A9579

== ENCOUNTER → 2022-08-23 10:43 | Outpatient (CLI) | payer BC, SELFPAY | PROVIDERS: PCP Family Medicine; Visit Provider Obstetrics & Gynecology | DX: R32 Unspecified urinary incontinence (principal) | CPT/HCPCS: 87086 ==

== ENCOUNTER → 2022-12-10 14:47 | Outpatient (CLI) | payer BC, SELFPAY ==
--- NOTE | 2022-12-10 | DI.RAD.S_ITS ---
PROCEDURE: XR HAND LT MIN 3V INDICATIONS: Unspecified injury of right wrist, hand and finger(s), initi TECHNIQUE: 3 views of the hand(s) acquired. COMPARISON: None. FINDINGS: Bones: No fractures or dislocations. Carpal bones are normally aligned. No suspicious bony lesions. Soft tissues: No suspicious soft tissue calcifications. IMPRESSION: No evidence acute bony abnormality. If clinical suspicion and/or symptoms persist, further assessment with repeat plain films, or advanced imaging (e.g., CT, MRI, or bone scan) may be helpful for further assessment. Dictated by: Vitaliy Bishop M.D. on 12/10/2022 at 16:07 Approved by: Vitaliy Bishop M.D. on 12/10/2022 at 16:08
--- NOTE | 2022-12-10 | DI.RAD.S_ITS ---
PROCEDURE: XR HAND RT MIN 3V INDICATIONS: Unspecified injury of right wrist, hand and finger(s), initi TECHNIQUE: 3 views of the hand(s) acquired. COMPARISON: None. FINDINGS: Bones: No fractures or dislocations. Carpal bones are normally aligned. No suspicious bony lesions. Mild degenerative arthritis involving the 1st carpometacarpal joint. Soft tissues: No suspicious soft tissue calcifications. IMPRESSION: Mild degenerative arthritis involving the 1st carpometacarpal joint. No evidence acute bony abnormality. If clinical suspicion and/or symptoms persist, further assessment with repeat plain films, or advanced imaging (e.g., CT, MRI, or bone scan) may be helpful for further assessment. Dictated by: Vitaliy Bishop M.D. on 12/10/2022 at 16:05 Approved by: Vitaliy Bishop M.D. on 12/10/2022 at 16:07
== END ==
PROVIDERS: PCP Family Medicine; Referring Provider Family Medicine; Visit Provider Family Medicine
DX: S69.91XA Unspecified injury of right wrist, hand and finger(s), initial encounter (principal); M18.11 Unilateral primary osteoarthritis of first carpometacarpal joint, right hand; X58.XXXA Exposure to other specified factors, initial encounter
CPT/HCPCS: 73130

== ENCOUNTER → 2024-01-28 09:22 | Outpatient (CLI) | payer BC, SELFPAY ==
[2024-01-28 11:11] LABS: BUN Creatinine Ratio 16.5 (6-22); Blood Urea Nitrogen 13 mg/dL (7-17); C-Reactive Protein Quant < 0.5 mg/dL (<1.0); Calcium 9.4 mg/dL (8.4-10.2); Carbon Dioxide 26 mmol/L (22-32); Chloride 106 mmol/L (98-107); Estimated Glomerular Filt Rate > 60 mL/min (>60); Glucose 82 mg/dL (70-100); HEMOLYSIS 38 (0-50); Magnesium 2.2 mg/dL (1.6-2.3); Potassium 4.2 mmol/L (3.4-5.1); Sodium 139 mmol/L (137-145)
[2024-01-28 11:17] LABS: Rheumatoid Factor < 8.6 IU/mL (<12.0)
[2024-01-28 11:27] LABS: Free T4, Direct Thyroxine 1.29 ng/dL (0.78-2.19)
[2024-01-28 11:41] LABS: Thyroid Stimulating Hormone 2.51 uIU/mL (0.47-4.68)
[2024-01-31 13:09] LABS: CCP Antibodies IgG/IgA 4 units (0-19)
== END ==
PROVIDERS: PCP Family Medicine; Referring Provider Family Medicine; Visit Provider Family Medicine
DX: M79.604 Pain in right leg (principal); M79.605 Pain in left leg; R25.3 Fasciculation; I10 Essential (primary) hypertension
CPT/HCPCS: 36415; 80048; 83735; 84439; 84443; 86038; 86140; 86200; 86430